=== PATIENT | male | born 1990 | race Hispanic/Latino ===

== ENCOUNTER 2017-06-20 20:36 | Emergency (ER) | payer SELFPAY ==
--- NOTE | 2017-06-20 23:02 | CT ---
CT HEAD WITHOUT CONTRAST: Technique: Multiple axial tomograms were obtained through the head without IV enhancement. History: Fall with head injury. FINDINGS: Ventricular size is within normal range. Slight asymmetry of the left frontal horn can be anatomic. There is no evidence of intracranial hemorrhage or contusion. Sinuses and mastoids are well aerated. IMPRESSION: No acute abnormality identified. POS: [facility]
== END 2017-06-20 23:07 | disposition home or self-care (01) ==
LOC: ERS 20:36
DX: S00.83XA Contusion of other part of head, initial encounter (principal); F17.200 Nicotine dependence, unspecified, uncomplicated; V00.131A Fall from skateboard, initial encounter; Y93.51 Activity, roller skating (inline) and skateboarding
CPT/HCPCS: 70450

== ENCOUNTER 2017-07-06 18:38 | Observation (INO) | payer SELFPAY ==
[~2017-07-06 18:38] MED LIST: ISOVUE-370 76%-LOCM 1 ML ONE
[2017-07-06] MEDS ORDERED: Ondansetron HCl/PF 4 MG/2 ML Vial ONE (18:56)
[2017-07-06] MEDS ORDERED: Lorazepam 2 MG/ML VIAL ONE (18:56)
[2017-07-06 19:12] LABS: #Basophils 0.1 thou/uL (0.0-0.2); #Eosinphils 0.1 thou/uL (0.0-0.7); #Lymphocytes 1.5 thou/uL (1.20-3.40); #Monocytes 1.1 thou/uL (0.11-0.59); #Neutrophils 13.1 thou/uL (1.40-6.50); %Basophils 0.8 % (0.0-1.0); %Eosinophils 0.3 % (0.0-10.0); %Lymphocytes 9.5 % (21.0-51.0); %Monocytes 6.7 % (0.0-10.0); %Neutrophils 82.7 % (42.0-75.0); Hemoglobin 15.3 g/dL (14.0-18.0); Mean Corpuscular HGB CONC 34.8 g/dL (32.0-36.0); Mean Platelet Volume 6.2 fL (7.4-10.4); Platelet Count 333 thou/uL (130-400); RBC Distribution Width 12.3 % (11.5-14.5); Red Blood Cell (RBC) Count 4.78 mill/uL (4.70-6.10); White Blood Cell (WBC) Count 15.8 thou/uL (4.8-10.8)
[2017-07-06] MEDS ORDERED: Thiamine HCl 200 MG/2 ML VIAL SLOW IVP SCH (19:15)
[2017-07-06 19:34] LABS: ALT (SGPT) 40 U/L (8-55); AST (SGOT) 45 U/L (5-34); Alkaline Phosphatase 83 U/L (40-150); Anion Gap 21 mmol/L (10-20); BUN (Urea Nitrogen) 9 mg/dL (8.9-20.6); Bilirubin, Total 1.5 mg/dL (0.2-1.2); Calc. Creatinine Clearance 0 mL/min (70-130); Calcium 9.2 mg/dL (7.8-10.44); Carbon Dioxide 20 mmol/L (22-29); Chloride 96 mmol/L (98-107); Estimated GFR-MDRD Greater than 90; Globulin 3.3 g/dL (2.4-3.5); Glucose 95 mg/dL (70-105); Potassium 4.1 mmol/L (3.5-5.1); Protein, Total 8.3 g/dL (6.0-8.3)
[2017-07-06 19:46] LABS: Sodium 133 mmol/L (136-145)
--- NOTE | 2017-07-06 20:41 | CT ---
CT OF THE ABDOMEN AND PELVIS WITH CONTRAST: 07/06/17 COMPARISON: None. HISTORY: Lower abdominal pain with nausea and vomiting that may be secondary to alcohol withdrawal. The abdomi nal pain is worse. The patient has been drinking since age of 18. TECHNIQUE: Multiple contiguous axial images were obtained in a CT of the abdomen and pelvis with contrast. Coron al reformats were performed. FINDINGS: The liver, gallbladder, kidneys, adrenal glands, spleen, and pancreas are unremarkable. No free air, free fluid or stranding changes are seen in the abdomen or pelvis. The large and small bowel are unremarkable. The appendix is not definitely seen. No abdominal or pelvic lymphadenopathy are seen. The osseous structures, visualized inferior thorax a nd abdominal wall soft tissues are unremarkable. IMPRESSION: No evidence of acute intra-abdominal/pelvic abnormality. POS: [facility]
[2017-07-06] MEDS ORDERED: Famotidine/PF 20 mg/2ml Vial ONE (22:37)
[2017-07-06] MEDS ORDERED: Diazepam 5 MG TAB PO PRN (23:29)
[2017-07-06] MEDS ORDERED: Thiamine HCl 200 MG/2 ML VIAL IM SCH (23:30)
[2017-07-06] MEDS ORDERED: Diazepam 5 MG TAB PO SCH (23:30)
--- NOTE | 2017-07-06 23:35 | PDOC.FPRHP ---
- History of Present Illness Chief Complaint: alcohol withdrawal History of Present Illness: Keyon Kwon is a 26 year old M with no significant PMH of presents today for alcohol withdrawal like symptoms. Patient has had two and a half days of nausea, vomiting, sweats, anxiety, and tremors. States that he has been drinking heavily since about the age of [age] years old. In a normal day he will have about 8-10 24 oz beers. He states that the last time he drank anything was three days ago. He has decided that he needs to quit drinking so much because he is worried about the short and nursing home effects on his body. He states that he has not been able to hold down water for the last 2 days because he vomits every time he tries to drink anything. The vomitus was clear yellow most of the time but this morning he had one episode of coffee ground like emesis. No henrik hematemesis. No abdominal pain. ED Course: In the ED, he received ativan and IVFs. Ativan improved the tremors. - Allergies/Adverse Reactions Allergies Allergy/AdvReac Type Severity Reaction Status Date / Time No Known Allergies Allergy Unverified 07/06/17 19:03 - Home Medications Comments: No home medications. - History PMHx: None PSHx: None FHx: Noncontributory Social: Patient was living in apartment but will be moving in with his brother after this admission. His brother has told him that he will not be allowed to live with him if he drinks any alcohol. Endorses occasional cigarette when he is drinking, denies any current drug or recent drug use. - Review of Systems General: reports: night sweats. denies: fever/chills, weight/appetite/sleep changes Eyes: denies: eye pain, vision changes ENT: denies: nasal congestion, rhinorrhea Respiratory: denies: cough, congestion, shortness of breath Cardiovascular: denies: chest pain, palpitation, edema, paroxysmal nocturnal dyspnea, orthopnea Gastrointestinal: reports: nausea, vomiting. denies: diarrhea, constipation, abdominal pain, GI bleeding Genitourinary: denies: dysuria, polyuria, discharge Skin: denies: rashes, lesions Musculoskeletal: denies: pain, tenderness, stiffness Neurological: reports: other (tremors/shakes). denies: numbness, syncope, seizure, weakness Psychological: reports: anxiety. denies: depression - Vital signs BP: 146/81 HR: 114 RR: 18 Tmax: 99.4 Pox: 100% on RA Wt: 58 kg - Physical Exam Constitutional: NAD, awake, alert and oriented, well developed HEENT: normocephalic and atraumatic, PERRLA, EOMI, conjunctiva clear, grossly normal vision, TM's clear and intact, grossly normal hearing, normal nasal mucosa, oropharynx clear -HEENT: dry mucous membranes Neck: supple, FROM, trachea midline, no JVD Chest: no-tender to palpation, no lesions Heart: RRR, normal S1/S2, no murmurs/rubs/gallops, pulses present Lungs: CTAB, no respiratory distress, good air movement, no rales/rhonchi, no wheezing, no retractions Abdomen: soft, non-tender, bowel sounds present, no masses/distention Musculoskeletal: normal structure, normal tone, ROM grossly normal Neurological: no focal deficit, CN II-XII intact, normal sensation -Neurological: fine tremor, sweaty palms Skin: no rash/lesions, capillary refill <2 seconds Heme/Lymphatic: no unusual bruising or bleeding Psychiatric: normal mood and affect, good judgment and insight, intact recent and remote memory FMR H&P: Results - Labs Result Diagrams: 07/06/17 19:01 07/06/17 19:01 Lab results: WBC 15.8 thou/uL (4.8-10.8) H 07/06/17 19:01 Hgb 15.3 g/dL (14.0-18.0) 07/06/17 19:01 Hct 44.0 % (42.0-52.0) 07/06/17 19:01 MCV 92.0 fl (80.0-94.0) 07/06/17 19:01 Plt Count 333 thou/uL (130-400) 07/06/17 19:01 Neutrophils % 82.7 % (42.0-75.0) H 07/06/17 19:01 Sodium 133 mmol/L (136-145) L 07/06/17 19:01 Potassium 4.1 mmol/L (3.5-5.1) 07/06/17 19:01 Chloride 96 mmol/L (98-107) L 07/06/17 19:01 Carbon Dioxide 20 mmol/L (22-29) L 07/06/17 19:01 BUN 9 mg/dL (8.9-20.6) 07/06/17 19:01 Creatinine 0.80 mg/dL (0.6-1.3) 07/06/17 19:01 Glucose 95 mg/dL (70-105) 07/06/17 19:01 Calcium 9.2 mg/dL (7.8-10.44) 07/06/17 19:01 Total Bilirubin 1.5 mg/dL (0.2-1.2) H 07/06/17 19:01 AST 45 U/L (5-34) H 07/06/17 19:01 ALT 40 U/L (8-55) 07/06/17 19:01 Alkaline Phosphatase 83 U/L (40-150) 07/06/17 19:01 Serum Total Protein 8.3 g/dL (6.0-8.3) 07/06/17 19: Albumin 5.0 g/dL (3.5-5.0) 07/06/17 19:01 - EKG Interpretation EKG: Sinus Tachycardia FMR H&P: A/P - Problem List (1) Increased anion gap metabolic acidosis Current Visit: Yes Status: Acute Code(s): E87.2 - ACIDOSIS (2) Moderate dehydration Current Visit: Yes Status: Acute Code(s): E86.0 - DEHYDRATION (3) Alcohol withdrawal Current Visit: Yes Status: Acute Code(s): F10.239 - ALCOHOL DEPENDENCE WITH WITHDRAWAL, UNSPECIFIED (4) Hyponatremia Current Visit: Yes Status: Acute Code(s): E87.1 - HYPO-OSMOLALITY AND HYPONATREMIA - Plan (1) Anion gap metabolic acidosis: has not been eating or drinking any significant amount for three days with long history of alcohol abuse. Place on Tele. ASE protocol. Supplement folate, thiamine, multivitamin. IVFs, Banana bag initially. NS @ 150 ml/hr. Will monitor labs closely. (2) Moderate dehydration: Banana bag initially followed by NS @ 150 ml/hr (3) Alcohol withdrawal: ASE protocol. Three days since last beverage. Continuous cardiac monitoring on Tele. Consult case management for discharge planning and follow up. Consider acamprosate upon discharge. (4) Hyponatremia: Likely 2/2 dehydration. IVFs and monitor. (5) Code Status: FULL CODE (6) Diet: Reg once he can tolerate PO (7) Activity: ad lyle FMR H&P: Upper Level - Pertinent history 26yo HM with no sig pmhx who presents with tremors, anxiety, sweats, and racing heart arppox 2.5 days after his last drink. He states he typically drinks 8-10 beers per day that are 24oz each. States he has been drinking this heavily for hte last 3-4 years but started drinking at age 18. Also states he began vomiting 2 days ago and has not been able to take much water PO without vomiting. Emesis is yellow & bilious in color, but has also had 1 episode of coffee-ground emesis. No henrik hematemesis. No diarrhea, melena or hematochezia. Family members have expressed concern for the amount of alcohol he drinks. He no longer has an apartment and he is planning to move in with his brother in [facility], who is requesting the patient abstain from alcohol. This is some of his motivation to quit in addition to not wanting to cause permanent damage to his body. Denies any drug use. Endorses 1 cigarette per day when he is drunk. FHx sig for alcoholism but no cirrhosis. - Pertinent findings Laboratory Tests 07/06/17 07/06/17 19:01 19:01 WBC 15.8 H Hgb 15.3 Hct 44.0 Plt Count 333 Sodium 133 L Potassium 4.1 Chloride 96 L Carbon Dioxide 20 L Anion Gap 21 H BUN 9 Creatinine 0.80 Estimated GFR (MDRD) Greater than 90 Glucose 95 Calcium 9.2 Total Bilirubin 1.5 H AST 45 H ALT 40 Alkaline Phosphatase [address] A/P- negative Pertinent physical exam findings- Gen- NAD, mildly tremulous, palmar diaphoresis and anxious appearing. CV- mildly tachycardic lungs- CTAB abd- non-tender to palpation neuro- no focal deficits. no asterixis. derm- no stigmata of cirrhosis. psyc- affect appropriate, mildly anxious appearing. CIWa- 12 by my exam - Plan Date/Time: 07/06/17 2783 26yo HM with no sig pmhx presents with- 1) Moderate dehydration- IVF until UOP > 100cc/hr and VS normal. Repeat BMP & CBC in am. zofran, GI cocktail prn to help tolerate po fluid intake. 2) Acute alcohol withdrawal- ASE protocol and start valium taper now. give thiamine, folate, MV daily. highly motivated to quit drinking. consider acamprosate upon discharge to aid with abstinence. consult case mgmt for resources in [facility]. 3) Alcohol abuse- counseling, bzd and vitamins as above 4) Anion gap metabolic acidosis- likely alcoholic ketoacidosis. continue IVF and replete electrolytes. I, [Lyubov Bailey DO ([email or web address]) ], have evaluated this patient and agree with findings/plan as outlined by digital intern resident. Pertinent changes/additions are listed here.
[2017-07-06] MEDS ORDERED: Multivitamins, Adult 10 ML, Folic Acid 1 MG, Thiamine HCl 100 MG in Dextrose 5 %-0.45 %... IV SCH ×4 (23:45)
[2017-07-07] MEDS ORDERED: Lidocaine 2% Viscous Solution 20 ML, Aluminum & Magnesium Hydroxide 30 ML, Donnatal Eli... SSW SCH ×3 (00:15)
[2017-07-07 00:24] VITALS: BMI 18.5
[2017-07-07] MEDS ORDERED: Diazepam 5 MG TAB PO PRN (04:00)
[2017-07-07 05:13] LABS: Amphetamine Not Detected (NotDetected); Barbiturates Screen Not Detected (NotDetected); Benzodiazepine Screen Detected (NotDetected); Cocaine Metabolite Screen Not Detected (NotDetected); Medtox Reader # READER 1; Methadone Not Detected (NotDetected); Methamphetamine Not Detected (NotDetected); Opiate Screen Not Detected (NotDetected); Oxycodone Screen Not Detected (NotDetected); Phencyclidine (PCP) Not Detected (NotDetected); THC/Cannabinoid Screen Not Detected (NotDetected); Tricyclic Screen Not Detected (NotDetected)
[2017-07-07 05:14] LABS: Medtox Control Line Valid? VALID (VALID)
[2017-07-07 06:27] LABS: #Basophils 0.1 thou/uL (0.0-0.2); #Eosinphils 0.1 thou/uL (0.0-0.7); #Lymphocytes 1.5 thou/uL (1.20-3.40); #Monocytes 0.6 thou/uL (0.11-0.59); #Neutrophils 3.7 thou/uL (1.40-6.50); %Basophils 1.3 % (0.0-1.0); %Eosinophils 1.7 % (0.0-10.0); %Lymphocytes 25.6 % (21.0-51.0); %Monocytes 10.1 % (0.0-10.0); %Neutrophils 61.3 % (42.0-75.0); Hemoglobin 13.9 g/dL (14.0-18.0); Mean Corpuscular HGB CONC 34.5 g/dL (32.0-36.0); Mean Corpuscular Hemoglobin 31.8 pg (27.0-31.0); Mean Corpuscular Volume 92.2 fl (80.0-94.0); Mean Platelet Volume 6.2 fL (7.4-10.4); Platelet Count 249 thou/uL (130-400); RBC Distribution Width 12.4 % (11.5-14.5); Red Blood Cell (RBC) Count 4.36 mill/uL (4.70-6.10)
[2017-07-07] MEDS: Sodium Chloride 0.9% 1,000 ML IV SCH ×4 (06:56→20:59)
[2017-07-07 07:02] LABS: ALT (SGPT) 28 U/L (8-55); AST (SGOT) 30 U/L (5-34); Albumin 3.7 g/dL (3.5-5.0); Alkaline Phosphatase 69 U/L (40-150); Anion Gap 11 mmol/L (10-20); BUN (Urea Nitrogen) 5 mg/dL (8.9-20.6); Bilirubin, Total 1.4 mg/dL (0.2-1.2); Calc. Creatinine Clearance 122 mL/min (70-130); Calcium 7.8 mg/dL (7.8-10.44); Carbon Dioxide 22 mmol/L (22-29); Chloride 106 mmol/L (98-107); Estimated GFR-MDRD Greater than 90; Globulin 2.2 g/dL (2.4-3.5); Glucose 111 mg/dL (70-105); Potassium 3.2 mmol/L (3.5-5.1); Protein, Total 5.9 g/dL (6.0-8.3); Sodium 136 mmol/L (136-145)
--- NOTE | 2017-07-07 08:43 | PDOC.FM ---
- Subjective Subjective: 26 yo M with no significant medical history admitted for acute etoh withdrawal. Pt feels better today than at admission. He has experienced 3 days of n/v, however he states that this has improved somewhat. He denies hallucination. It has been 3 days since his last drink. He has never seized when stopping drinking in the past. Most recent ASE was 12 down trending from 14. Pt states that he is ready to quit drinking because of concerns for shelter problems. He is interested in what help is available. He is also concerned about a feeling of twitching or worm like sensation in his left let that progresses into his abd and chest. He states that this precedes panic attacks and is the reason that he started drinking. He has no psych hx, however has no consistent primary care. - Objective MAR Reviewed: Yes Vital Signs & Weight: Vital Signs (12 hours) Temp Pulse Resp BP BP Pulse Ox 07/07/17 07:45 98.7 F 79 18 132/85 98 07/07/17 04:20 98.6 F 83 18 128/84 128/84 100 07/07/17 00:24 134/84 07/06/17 23:57 98.8 F 83 20 134/84 134/84 100 Weight Weight 56.926 kg I&O: 07/06/17 07/07/17 07/08/17 06:59 06:59 06:59 Intake Total 1308 Output Total 650 Balance 658 Result Diagrams: 07/07/17 05:58 07/07/17 05:58 <Shady Branham - Last Filed: 07/07/17 08:39> - Objective Vital Signs & Weight: Vital Signs (12 hours) Temp Pulse Resp BP BP Pulse Ox 07/08/17 07:44 98.4 F 75 16 127/80 100 07/08/17 04:00 129/80 07/08/17 03:45 97.6 F 59 L 16 129/80 99 07/08/17 00:15 126/76 07/07/17 23:16 98.6 F 62 18 126/76 100 Weight Admit Weight 56.926 kg Weight 56.926 kg I&O: 07/07/17 07/08/17 07/09/17 06:59 06:59 06:59 Intake Total 1308 240 Output Total 650 1800 Balance 658 -1560 Result Diagrams: 07/07/17 05:58 07/08/17 04:37 <Ginna Newsome - Last Filed: 07/08/17 08:47> Phys Exam - Physical Examination Constitutional: NAD HEENT: PERRLA, moist MMs, sclera anicteric Neck: no nodes, no JVD, supple Respiratory: clear to auscultation bilateral Cardiovascular: RRR, no significant murmur Gastrointestinal: soft, non-tender, no distention, positive bowel sounds Musculoskeletal: no edema, pulses present Normal strength, ROM, and DTR in LE and UE Neurological: non-focal, normal sensation, moves all 4 limbs Psychiatric: normal affect, A&O x 3 Skin: no rash <Shady Branham - Last Filed: 07/07/17 08:39> Dx/Plan (1) Alcohol withdrawal Code(s): F10.239 - ALCOHOL DEPENDENCE WITH WITHDRAWAL, UNSPECIFIED Status: Acute QualifierTitle: Complication of substance-induced condition: uncomplicated Qualified Code(s): F10.230 - Alcohol dependence with withdrawal, uncomplicated (2) Hematemesis Code(s): K92.0 - HEMATEMESIS Status: Acute QualifierTitle: Nausea presence: with nausea Qualified Code(s): K92.0 - Hematemesis (3) Hyponatremia Code(s): E87.1 - HYPO-OSMOLALITY AND HYPONATREMIA Status: Resolved (4) Increased anion gap metabolic acidosis Code(s): E87.2 - ACIDOSIS Status: Resolved (5) Moderate dehydration Code(s): E86.0 - DEHYDRATION Status: Resolved (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 Three days since last beverage. - Continue ASE protocol and continuous cardiac monitoring on Tele. - Consult case management for discharge planning and follow up. - Consider acamprosate upon discharge. Hematemesis - 2/2 to n/. Pt has had no episodes since admission - zofran to control n/v - monitor h&h Nausea/vomiting - 2/2 withdrawal. Continue IVF. Zofran as needed Anion gap metabolic acidosis - Resolved. Moderate dehydration - Resolved, normal vitals and skin turgor - continue IVF until pt can tolerate PO Hyponatremia - resolved Formication - Pt appears to have underlying anxiety and possible other psych diagnosis. Recommend [facility] or PCP follow up as outpatient. PE is inconsistent with organic source of symptoms Dispo: Pt stable. Likely ready for DC in 24 hours. Consult CM for placement into etoh rehab <Shady Branham - Last Filed: 07/07/17 08:39> Attending Addendum - Attending Addendum Date/Time: 07/08/1744 I personally evaluated the patient and discussed the management with Dr. Branham and Dr. Pina I agree with the History, Examination, Assessment and Plan documented above with any addition or exceptions noted below. 26 yo alcoholic male presents with alcohol withdrawal. HD#1 Withdrawal x 3days. Symptoms improved since admission. No N/V. Tolerating PO. No tremors or shakes. No hallucinations. Ketones, Mg, Phos not monitored last night. Will check mg and phos to replace then likely d/c to home. CM consulted to help with rehab and treatment programs. Patient interested in stopping. Re-evaluate this afternoon. Likely d/c. ABrayMD <Ginna Newsome - Last Filed: 07/08/17 08:47>
[2017-07-07] MEDS: Acetaminophen 325 MG TAB PO PRN ×2 (08:59→22:45)
[2017-07-07] MEDS: Multivit, Therapeutic 1 TAB PO SCH (08:59)
[2017-07-07] MEDS ORDERED: Multivitamin W/ Minerals 1 TAB PO SCH (09:00)
[2017-07-07] MEDS ORDERED: Folic Acid 1 MG TAB PO SCH (09:00)
[2017-07-07] MEDS: Folic Acid 1 MG TAB PO SCH (09:00)
[2017-07-07] MEDS ORDERED: Magnesium Oxide 400 MG TAB PO SCH (09:00)
[2017-07-07] MEDS ORDERED: FLU VACC QS2017-18 36 mo. & older 0.5 ML SYRINGE IM ONE (09:00)
[2017-07-07] MEDS ORDERED: Potassium Chloride 40 MEQ in Sodium Chloride 0.9% 250 ML 250 ML IVPB SCH (12:45)
[2017-07-07 17:53] LABS: Anion Gap 10 mmol/L (10-20); BUN (Urea Nitrogen) Less than 4 mg/dL (8.9-20.6); Calc. Creatinine Clearance 113 mL/min (70-130); Calcium 8.8 mg/dL (7.8-10.44); Carbon Dioxide 26 mmol/L (22-29); Chloride 106 mmol/L (98-107); Estimated GFR-MDRD Greater than 90; Glucose 86 mg/dL (70-105); Magnesium 2.2 mg/dL (1.6-2.6); Potassium 4.4 mmol/L (3.5-5.1); Sodium 138 mmol/L (136-145)
[2017-07-07 17:56] LABS: Phosphorus 1.8 mg/dL (2.3-4.7)
[2017-07-08] MEDS: Sodium Chloride 0.9% 1,000 ML IV SCH ×2 (03:35→10:19)
[2017-07-08 05:35] LABS: Anion Gap 10 mmol/L (10-20); BUN (Urea Nitrogen) 4 mg/dL (8.9-20.6); Calc. Creatinine Clearance 127 mL/min (70-130); Calcium 8.3 mg/dL (7.8-10.44); Carbon Dioxide 25 mmol/L (22-29); Chloride 106 mmol/L (98-107); Estimated GFR-MDRD Greater than 90; Glucose 89 mg/dL (70-105); Magnesium 2.1 mg/dL (1.6-2.6); Phosphorus 2.6 mg/dL (2.3-4.7); Potassium 3.5 mmol/L (3.5-5.1); Sodium 137 mmol/L (136-145)
[2017-07-08] MEDS: Folic Acid 1 MG TAB PO SCH (08:03)
[2017-07-08] MEDS: Multivit, Therapeutic 1 TAB PO SCH (08:03)
--- NOTE | 2017-07-08 09:03 | PDOC.FM ---
- Subjective Subjective: 26 yo M here for etoh withdrawal. Today pt feels well and has no specific complaints. He is tolerating PO intake and no longer has n/v. There were no acute events over night. - Objective MAR Reviewed: Yes Vital Signs & Weight: Vital Signs (12 hours) Temp Pulse Resp BP BP Pulse Ox 07/08/17 07:44 98.4 F 75 16 127/80 100 07/08/17 04:00 129/80 07/08/17 03:45 97.6 F 59 L 16 129/80 99 07/08/17 00:15 126/76 07/07/17 23:16 98.6 F 62 18 126/76 100 Weight Admit Weight 56.926 kg Weight 56.926 kg I&O: 07/07/17 07/08/17 07/09/17 06:59 06:59 06:59 Intake Total 1308 240 Output Total 650 1800 Balance 658 -7450 Result Diagrams: 07/07/17 05:58 07/08/17 04:37 <Shady Branham - Last Filed: 07/08/17 09:01> - Objective Vital Signs & Weight: Vital Signs (12 hours) Temp Pulse Resp BP BP Pulse Ox 07/08/17 11:40 98.6 F 75 16 133/84 99 07/08/17 08:06 98.6 F 75 16 133/84 07/08/17 07:44 98.4 F 75 16 127/80 100 Weight Admit Weight 56.926 kg Weight 56.926 kg I&O: 07/07/17 07/08/17 07/09/17 06:59 06:59 06:59 Intake Total 0063 349 9288 Output Total 650 1800 2500 Balance 658 0 -580 Result Diagrams: 07/07/17 05:58 07/08/17 04:37 <Ginna Newsome - Last Filed: 07/08/17 16:17> Phys Exam - Physical Examination Constitutional: NAD HEENT: moist MMs, sclera anicteric Neck: supple, full ROM Respiratory: clear to auscultation bilateral Cardiovascular: RRR, no significant murmur Gastrointestinal: soft, non-tender, no distention, positive bowel sounds Musculoskeletal: no edema, pulses present Neurological: non-focal, moves all 4 limbs Psychiatric: normal affect, A&O x 3 Skin: no rash, normal turgor <Sahdy Branham - Last Filed: 07/08/17 09:01> Dx/Plan (1) Alcohol withdrawal Code(s): F10.239 - ALCOHOL DEPENDENCE WITH WITHDRAWAL, UNSPECIFIED Status: Acute QualifierTitle: Complication of substance-induced condition: uncomplicated Qualified Code(s): F10.230 - Alcohol dependence with withdrawal, uncomplicated (2) Hematemesis Code(s): K92.0 - HEMATEMESIS Status: Acute QualifierTitle: Nausea presence: with nausea Qualified Code(s): K92.0 - Hematemesis (3) Hyponatremia Code(s): E87.1 - HYPO-OSMOLALITY AND HYPONATREMIA Status: Resolved (4) Increased anion gap metabolic acidosis Code(s): E87.2 - ACIDOSIS Status: Resolved (5) Moderate dehydration Code(s): E86.0 - DEHYDRATION Status: Resolved (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 - Stop ASE - Consult case management for discharge planning and follow up. - Consider acamprosate as outpt Hematemesis - 2/2 to n/. Pt has had no episodes since admission - zofran to control n/v - monitor h&h Nausea/vomiting - 2/2 withdrawal. Continue IVF. Zofran as needed Anion gap metabolic acidosis - Resolved. Moderate dehydration - Resolved, normal vitals and skin turgor - continue IVF until pt can tolerate PO Hyponatremia - resolved Formication - Pt appears to have underlying anxiety and possible other psych diagnosis. Recommend [facility] or PCP follow up as outpatient. PE is inconsistent with organic source of symptoms Dispo: dc was held yesterday dt phos abnormalities and lack of transportation. Pt will dc today <Shady Branham - Last Filed: 07/08/17 09:01> Attending Addendum - Attending Addendum Date/Time: 07/08/17 3608 I personally evaluated the patient and discussed the management with Dr. Branham and Dr. Pina I agree with the History, Examination, Assessment and Plan documented above with any addition or exceptions noted below. 26 yo alcoholic male presents with alcohol withdrawal. HD#2 Patient without complaints this morning. Doing well. No s/sx of withdrawal. Electrolytes replaced. [facility] Will need follow up with [facility] Will need to establish with local AA chapter [place] <Ginna Newsome - Last Filed: 07/08/17 16:17>
[2017-07-08 12:21] VITALS: BP 133/84; TEMP 98.6
--- NOTE | 2017-07-09 07:29 | DIS-2 ---
DATE OF ADMISSION: 07/06/2017 DATE OF DISCHARGE: 07/08/2017 RESIDENT: Shady Branham D.O. ADMITTING ATTENDING: Ginna Newsome M.D. DISCHARGE ATTENDING: Ginna Newsome M.D. CONSULTS: None. PROCEDURES: None. PRIMARY DIAGNOSIS: Acute alcohol withdrawal. SECONDARY DIAGNOSES: Alcoholic ketoacidosis, mild dehydration, hyponatremia. DISCHARGE MEDICATIONS: None. DISCONTINUED MEDICATIONS: None. BRIEF HOSPITAL COURSE: This is a 26-year-old male who was admitted from the emergency room with two and half days of nausea, vomiting, sweats, anxiety and tremors. He had a history of drinking eight to ten 24-ounce beers per day prior to abruptly quitting drinking. He had stopped drinking approximately two and half days before presentation to the emergency room. Upon admission, he was found to have a white count of 15.8. He was also hyponatremic at 133 and acidotic. He had bicarbonate of 20. Upon admission, he was monitored on telemetry/observation. He was put on ASE protocol, was given a banana bag in the emergency room and then given supplement of folate, thiamine and multivitamin afterwards and volume resuscitated with normal saline. By the second day of admission, the acid base disturbance had resolved; however, the patient was found to be hypomagnesemic, hypophosphatemic and hypokalemic. These values were potassium of 3.2, mag of 2.0 and phos of 1.9. Electrolyte abnormalities were corrected over the next 24 hours. On the day of discharge, the patient had no more nausea and vomiting, had normal vital signs, ASE scores were consistently below 5. We extensively discussed on the dangers of continuing to drink as he currently is. The patient committed to quit drinking altogether and was moving in with his brother who would not allow him to drink while there. We discussed going to rehab; however, the patient declined stating that he would live with his brother who would not let him drink. While admitted, the patient was complaining of feeling of worms under his skin in his left leg and into his chest that came on as he became more anxious. He says it is the reason for his drinking altogether and that he was hoping to find out what these worms were. Physical exam was completely normal. He had good strength,range of motion, and a normal neurological exam. This is most likely psychogenic in nature. This was explained extensively to the patient. It is recommended that in addition to establishing with a primary care provider that he established with [facility] [place] as well. The patient agreed and understood where he should follow up in outpatient setting. DISPOSITION: Stable. DISCHARGE INSTRUCTIONS: 1. Location: Home. 2. Diet: Regular. 3. Activity: Ad-lyle. 4. [facility]up: [facility] WARREN
--- NOTE | 2017-07-17 00:25 | EKG ---
Test Reason : WITHDRAWLS Blood Pressure : / mmHG Vent. Rate : 110 BPM Atrial Rate : 110 BPM P-R Int : 116 ms QRS Dur : 086 ms QT Int : 336 ms P-R-T Axes : 025 072 050 degrees QTc Int : 454 ms Sinus tachycardia Possible Left atrial enlargement Borderline ECG Confirmed by YIMI CÁRDENAS ([id number]), editorial specialist LUX COLE ([id number]) on 07/17/2017 12:25:02 AM Referred By: Confirmed By:YIMI CÁRDENAS
== END 2017-07-08 14:23 | disposition home or self-care (01) ==
LOC: ERS 18:38 → 2SW 22:02
PROVIDERS: ADMIT Family Medicine; ATTEND Family Medicine
DX: F10.239 Alcohol dependence with withdrawal, unspecified (principal); E87.2 Acidosis; E87.1 Hypo-osmolality and hyponatremia; E86.0 Dehydration; K92.0 Hematemesis; F44.6 Conversion disorder with sensory symptom or deficit
CPT/HCPCS: 36415; 74177; 80048; 80053; 80306; 83735; 84100; 85025; 90471; 90682; 90732; 93005; 96361; 96372; 96374; 96375; G0008; G0009; G0378; J2060; J2405; J3411; J3475; J3480; J7042; J7050; Q2036; S0028

== ENCOUNTER 2017-08-04 16:00 | Emergency (ER) | payer SELFPAY ==
[2017-08-04 17:10] LABS: #Lymphocytes 0.9 thou/uL (1.20-3.40); #Monocytes 0.4 thou/uL (0.11-0.59); #Neutrophils 7.5 thou/uL (1.40-6.50); %Basophils 0.3 % (0.0-1.0); %Eosinophils 0.1 % (0.0-10.0); %Lymphocytes 10.5 % (21.0-51.0); %Monocytes 4.4 % (0.0-10.0); %Neutrophils 84.7 % (42.0-75.0); Hemoglobin 15.2 g/dL (14.0-18.0); Mean Corpuscular HGB CONC 35.7 g/dL (32.0-36.0); Mean Corpuscular Hemoglobin 32.5 pg (27.0-31.0); Mean Platelet Volume 5.7 fL (7.4-10.4); Platelet Count 245 thou/uL (130-400); RBC Distribution Width 12.2 % (11.5-14.5); Red Blood Cell (RBC) Count 4.69 mill/uL (4.70-6.10); White Blood Cell (WBC) Count 8.8 thou/uL (4.8-10.8)
[2017-08-04 17:36] LABS: Acetaminophen Less than 6.0 mcg/mL (10.0-30.0); Alcohol 39 mg/dL (Less than 10); Salicylate Less than 8.0 mg/dL (15.0-30.0)
[2017-08-04 17:41] LABS: ALT (SGPT) 47 U/L (8-55); AST (SGOT) 48 U/L (5-34); Albumin 4.5 g/dL (3.5-5.0); Alkaline Phosphatase 94 U/L (40-150); Anion Gap 16 mmol/L (10-20); BUN (Urea Nitrogen) 6 mg/dL (8.9-20.6); Calc. Creatinine Clearance 0 mL/min (70-130); Calcium 9.4 mg/dL (7.8-10.44); Carbon Dioxide 24 mmol/L (22-29); Chloride 96 mmol/L (98-107); Estimated GFR-MDRD Greater than 90; Globulin 3.1 g/dL (2.4-3.5); Glucose 163 mg/dL (70-105); Lipase 24 U/L (8-78); Potassium 4.1 mmol/L (3.5-5.1); Protein, Total 7.6 g/dL (6.0-8.3); Sodium 132 mmol/L (136-145)
[2017-08-04 19:25] LABS: Bilirubin Negative (Negative); Blood, Urine Negative (Negative); Clarity CLEAR (Clear); Glucose, Urine (Dipstick) Negative (Negative); Leukocyte Negative (Negative); Nitrite Negative (Negative); Protein, Urine (Dipstick) Negative (Neg-Trace); Specific Gravity, Urine 1.007 (1.002-1.036); Urobilinogen 0.2 mg/dL (0.2-1.0); pH, Urine 6.5 (5.0-9.0)
[2017-08-04 19:35] LABS: Amphetamine Not Detected (NotDetected); Barbiturates Screen Not Detected (NotDetected); Benzodiazepine Screen Not Detected (NotDetected); Cocaine Metabolite Screen Not Detected (NotDetected); Medtox Control Line Valid? VALID (VALID); Medtox Reader # READER 4; Methadone Not Detected (NotDetected); Methamphetamine Not Detected (NotDetected); Opiate Screen Not Detected (NotDetected); Oxycodone Screen Not Detected (NotDetected); Phencyclidine (PCP) Not Detected (NotDetected); THC/Cannabinoid Screen Not Detected (NotDetected); Tricyclic Screen Not Detected (NotDetected)
== END 2017-08-04 18:40 | disposition home or self-care (01) ==
LOC: ERS 16:00
DX: K29.00 Acute gastritis without bleeding (principal); F10.129 Alcohol abuse with intoxication, unspecified; F17.210 Nicotine dependence, cigarettes, uncomplicated; Z71.6 Tobacco abuse counseling; Y90.1 Blood alcohol level of 20-39 mg/100 ml
CPT/HCPCS: 36415; 80053; 80306; 80307; 81003; 83690; 85025; 96360; 99406

== ENCOUNTER 2017-08-16 05:02 | Emergency (ER) | payer SELFPAY ==
[2017-08-16] MEDS ORDERED: Lorazepam 2 MG/ML VIAL ONE (05:17)
[2017-08-16 05:29] LABS: #Eosinphils 0.1 thou/uL (0.0-0.7); #Lymphocytes 1.2 thou/uL (1.20-3.40); #Monocytes 0.9 thou/uL (0.11-0.59); #Neutrophils 5.5 thou/uL (1.40-6.50); %Basophils 0.6 % (0.0-1.0); %Eosinophils 1.4 % (0.0-10.0); %Lymphocytes 15.8 % (21.0-51.0); %Monocytes 11.1 % (0.0-10.0); %Neutrophils 71.1 % (42.0-75.0); Hemoglobin 15.6 g/dL (14.0-18.0); Mean Corpuscular HGB CONC 34.9 g/dL (32.0-36.0); Mean Corpuscular Hemoglobin 31.9 pg (27.0-31.0); Mean Corpuscular Volume 91.5 fl (80.0-94.0); Platelet Count 312 thou/uL (130-400); RBC Distribution Width 12.4 % (11.5-14.5); Red Blood Cell (RBC) Count 4.89 mill/uL (4.70-6.10); White Blood Cell (WBC) Count 7.7 thou/uL (4.8-10.8)
[2017-08-16] MEDS ORDERED: Multivitamins, Adult 10 ML, Thiamine HCl 100 MG, Folic Acid 1 MG in Dextrose 5 %-0.45 %... IV SCH (05:30)
[2017-08-16 05:40] LABS: ALT (SGPT) 24 U/L (8-55); AST (SGOT) 23 U/L (5-34); Albumin 4.8 g/dL (3.5-5.0); Alcohol Less than 10 mg/dL (Less than 10); Alkaline Phosphatase 83 U/L (40-150); Anion Gap 16 mmol/L (10-20); BUN (Urea Nitrogen) Less than 4 mg/dL (8.9-20.6); Bilirubin, Total 1.4 mg/dL (0.2-1.2); Calc. Creatinine Clearance 0 mL/min (70-130); Carbon Dioxide 26 mmol/L (22-29); Chloride 100 mmol/L (98-107); Estimated GFR-MDRD Greater than 90; Globulin 3.3 g/dL (2.4-3.5); Glucose 124 mg/dL (70-105); Potassium 3.9 mmol/L (3.5-5.1); Protein, Total 8.1 g/dL (6.0-8.3); Sodium 138 mmol/L (136-145)
--- NOTE | 2017-08-16 08:29 | CT ---
PRELIMINARY REPORT/[facility]/EMERGENTY AFTER-HOURS PROCEDURE CT Head Without Intravenous Contrast EXAM DATE/TIME: Exam ordered 08/16/2017 5:38 AM CLINICAL HISTORY: 26 years old, male; Signs and symptoms; Other: Seizure; Patient HX: 26 yo m presents to ed with alcoh ol withdrawal. Pt reports he has been shaking and states "i think i had a seizure while i was sleepin g. " pt states "i felt like my system was turning off. " pt reports pain in his arms and chest. Pt reports his last alcoholic drink was 11am 08/15/17. Pt denies any other drug use. Pt reports he typical ly consumes about 6 "tallboys" every other day. Pt reports abrasion on nose occurred 1.5 months ago w hen he fell down while skateboarding, and he has been picking at it recently. TECHNIQUE: Axial computed tomography images of the head/brain without intravenous contrast. COMPARISON: No relevant prior studies available. FINDINGS: Brain: Normal. No hemorrhage. No significant white matter disease. No edema. Ventricles: Normal. No ventriculomegaly. Bones/joints: Normal. No acute fracture. Soft tissues: Normal. Sinuses: Unremarkable as visualized. No acute sinusitis. Mastoid air cells: Unremarkable as visualized. No mastoid effusion. IMPRESSION: No acute intracranial hemorrhage. Thank you for allowing us to participate in the care of your patient. Dictated and Authenticated by: Alonzo Parmar MD 08/16/2017 6:06 AM Central Time ([place] & [place]) FINAL REPORT EMERGENT AFTER HOURS CT OF THE BRAIN WITHOUT CONTRAST: FINDINGS/IMPRESSION: I agree with the findings and impression given in the preliminary report per [facility] physician. No andrzej dence of acute intracranial abnormality. POS: [facility]
== END 2017-08-16 10:24 | disposition home or self-care (01) ==
LOC: ERS 05:02
DX: F10.239 Alcohol dependence with withdrawal, unspecified (principal); Z71.6 Tobacco abuse counseling; F17.210 Nicotine dependence, cigarettes, uncomplicated; Z79.899 Other long term (current) drug therapy
CPT/HCPCS: 70450; 80053; 80307; 85025; 93005; 96365; 96366; 96375; 99406; J2060; J3411; J7042

== ENCOUNTER 2017-09-20 08:36 | Emergency (ER) | payer SELFPAY ==
[2017-09-20] MEDS ORDERED: Lidocaine 2% Viscous Solution 20 ML, Aluminum & Magnesium Hydroxide 30 ML, Donnatal Eli... SSW SCH (09:45)
== END 2017-09-20 12:58 | disposition home or self-care (01) ==
LOC: ERS 08:36
DX: K29.20 Alcoholic gastritis without bleeding (principal); F41.9 Anxiety disorder, unspecified; F32.9 Major depressive disorder, single episode, unspecified; F17.210 Nicotine dependence, cigarettes, uncomplicated
CPT/HCPCS: 99283

== ENCOUNTER 2017-10-08 07:26 | Emergency (ER) | payer SELFPAY ==
[2017-10-08] MEDS ORDERED: Ondansetron ODT 4 MG TAB ONE (08:07)
== END 2017-10-08 08:28 | disposition home or self-care (01) ==
LOC: ERS 07:26
DX: F10.10 Alcohol abuse, uncomplicated (principal); F41.9 Anxiety disorder, unspecified; F32.9 Major depressive disorder, single episode, unspecified; F17.210 Nicotine dependence, cigarettes, uncomplicated
CPT/HCPCS: 99283; Q0162

== ENCOUNTER 2018-04-15 12:38 | Emergency (ER) | payer SELFPAY ==
[2018-04-15 13:37] LABS: #Eosinphils 0.1 thou/uL (0.0-0.7); #Lymphocytes 0.7 thou/uL (1.20-3.40); #Monocytes 0.8 thou/uL (0.11-0.59); #Neutrophils 4.7 thou/uL (1.40-6.50); %Basophils 0.6 % (0.0-1.0); %Eosinophils 1.2 % (0.0-10.0); %Lymphocytes 11.2 % (21.0-51.0); Mean Corpuscular Volume 91.6 fL (78.0-98.0); Mean Platelet Volume 6.4 fL (7.4-10.4); Platelet Count 212 thou/uL (130-400); RBC Distribution Width 13.3 % (11.5-14.5); Red Blood Cell (RBC) Count 5.01 mill/uL (4.70-6.10); White Blood Cell (WBC) Count 6.3 thou/uL (4.8-10.8)
[2018-04-15 14:00] LABS: ALT (SGPT) 29 U/L (8-55); AST (SGOT) 23 U/L (5-34); Albumin 4.9 g/dL (3.5-5.0); Alkaline Phosphatase 86 U/L (40-150); Anion Gap 15 mmol/L (10-20); BUN (Urea Nitrogen) 9 mg/dL (8.9-20.6); Bilirubin, Total 0.8 mg/dL (0.2-1.2); CK (CPK) 75 U/L (30-200); Calc. Creatinine Clearance 0 mL/min (70-130); Calcium 9.5 mg/dL (7.8-10.44); Carbon Dioxide 24 mmol/L (22-29); Chloride 99 mmol/L (98-107); Estimated GFR-MDRD Greater than 90; Globulin 3.3 g/dL (2.4-3.5); Glucose 114 mg/dL (70-105); Lipase 22 U/L (8-78); Potassium 3.9 mmol/L (3.5-5.1); Protein, Total 8.2 g/dL (6.0-8.3); Sodium 134 mmol/L (136-145)
--- NOTE | 2018-04-15 15:19 | RAD ---
CHEST 1 VIEW: Date: 04/15/18 HISTORY: Chest pain. FINDINGS: No comparison. Cardiac silhouette and pulmonary vasculature are unremarkable. Mediastinum is midline. No confluent a ir space consolidation or evidence of pneumothorax. IMPRESSION: No active cardiopulmonary abnormalities are demonstrated. POS: [facility]
[2018-04-15] MEDS ORDERED: Famotidine 20 MG TAB ONE (15:32)
== END 2018-04-15 15:35 | disposition home or self-care (01) ==
LOC: ERS 12:38
DX: R07.9 Chest pain, unspecified (principal); R10.9 Unspecified abdominal pain; F10.10 Alcohol abuse, uncomplicated; F17.210 Nicotine dependence, cigarettes, uncomplicated
CPT/HCPCS: 36415; 71045; 80053; 82550; 83690; 84484; 85025; 93005

== ENCOUNTER 2019-12-31 10:22 | Inpatient (IN) | payer OTHER, SELFPAY ==
[2019-12-31] MEDS ORDERED: Mag-Al 1200 mg/1200 mg/30 ML UDCUP ONE (11:02)
[2019-12-31] MEDS ORDERED: Lidocaine Viscous Sol 2% 15 ml UD Cup ONE (11:02)
[2019-12-31] MEDS ORDERED: Pantoprazole 40 MG VIAL ONE (11:02)
[2019-12-31] MEDS ORDERED: Ondansetron PF 4 MG/2 ML Vial ONE (11:02)
--- NOTE | 2019-12-31 11:25 | RAD ---
RADIOGRAPH CHEST 1 VIEW: DATE: 12/31/2019 HISTORY: 29-year-old male with chest pain and hematemesis. FINDINGS: The visualized lung michele are clear. The cardiomediastinal silhouette and hilar shadows are normal. The lateral costophrenic angles are sharp. The osseous structures appear normal. There is no pneu mothorax. IMPRESSION: Negative. jn [] POS: [facility]
[2019-12-31 11:27] LABS: Acetaminophen Less than 6.0 mcg/mL (10.0-30.0); Alcohol 149 mg/dL (Less than 10); Salicylate Less than 8.0 mg/dL (15.0-30.0)
[2019-12-31 11:39] LABS: ALT (SGPT) 197 U/L (8-55); AST (SGOT) 357 U/L (5-34); Albumin 5.2 g/dL (3.5-5.0); Alkaline Phosphatase 121 U/L (40-110); Anion Gap 37 mmol/L (10-20); BUN (Urea Nitrogen) 9 mg/dL (8.9-20.6); Bilirubin, Total 1.5 mg/dL (0.2-1.2); CK (CPK) 115 U/L (30-200); Calc. Creatinine Clearance 0 mL/min (70-130); Calcium 9.5 mg/dL (7.8-10.44); Chloride 98 mmol/L (98-107); Estimated GFR-MDRD Greater than 90; Globulin 3.6 g/dL (2.4-3.5); Glucose 104 mg/dL (70-105); Lipase 39 U/L (8-78); Magnesium 2.3 mg/dL (1.6-2.6); Potassium 4.2 mmol/L (3.5-5.1); Protein, Total 8.8 g/dL (6.0-8.3); Sodium 139 mmol/L (136-145)
[2019-12-31 11:53] LABS: Carbon Dioxide 8 mmol/L (22-29)
[2019-12-31 11:59] LABS: Band 18 % (5-11); Hemoglobin 17.4 g/dL (14.0-18.0); Lymphocytes 2 % (21-51); MDiff Complete? YES; Mean Corpuscular HGB CONC 32.4 g/dL (32.0-36.0); Mean Corpuscular Hemoglobin 30.3 pg (27.0-31.0); Mean Corpuscular Volume 93.5 fL (78.0-98.0); Mean Platelet Volume 8.4 fL (7.4-10.4); Monocytes 2 % (0-10); Neutrophil 78 % (42-75); Platelet Clumps MODERATE; Platelet Morphology Comment PLT clumps seen-ADEQ; RBC Morphology Normal; Red Blood Cell (RBC) Count 5.76 mill/uL (4.70-6.10)
[2019-12-31 12:28] LABS: Bacteria/HPF None Seen HPF (None Seen); Bilirubin Negative (Negative); Blood, Urine Negative (Negative); Clarity Clear (Clear); Glucose, Urine (Dipstick) Normal (Negative); Ketone, Urine Greater than 150 mg/dL (Negative); Leukocyte Negative Leu/uL (Negative); Nitrite Negative (Negative); Protein, Urine (Dipstick) 30 mg/dL (Neg-Trace); RBC/HPF 0-3 HPF (0-3); Specific Gravity, Urine 1.017 (1.002-1.036); Squamous Epithelial None Seen HPF (0-3); Urobilinogen Normal mg/dL (Less than 2); WBC/HPF 0-3 HPF (0-3); pH, Urine 5.5 (5.0-9.0)
[2019-12-31] MEDS ORDERED: Multivitamins, Adult 10 ML, Thiamine HCl 100 MG, Folic Acid 1 MG in Dextrose 5 %-0.45 %... IV SCH (12:30)
[2019-12-31 12:34] LABS: Medtox Reader # READER 4
[2019-12-31 12:35] LABS: Amphetamine Not Detected (NotDetected); Barbiturates Screen Not Detected (NotDetected); Benzodiazepine Screen Not Detected (NotDetected); Cocaine Metabolite Screen Not Detected (NotDetected); Medtox Control Line Valid? VALID (VALID); Methadone Not Detected (NotDetected); Methamphetamine Not Detected (NotDetected); Opiate Screen Not Detected (NotDetected); Oxycodone Screen Not Detected (NotDetected); Phencyclidine (PCP) Not Detected (NotDetected); THC/Cannabinoid Screen Detected (NotDetected); Tricyclic Screen Not Detected (NotDetected)
[2019-12-31] MEDS ORDERED: Thiamine 100 MG TAB ONE (13:45)
[2019-12-31] MEDS ORDERED: Acetaminophen 325 MG TAB PO PRN (15:12)
[2019-12-31] MEDS ORDERED: Acetaminophen 650 MG Suppository PR PRN (15:12)
[2019-12-31] MEDS ORDERED: Ondansetron ODT 4 MG TAB PO PRN (15:12)
[2019-12-31] MEDS ORDERED: Ondansetron PF 4 MG/2 ML Vial IVP PRN (15:12)
--- NOTE | 2019-12-31 15:21 | PDOC.FPRHP ---
- History of Present Illness Chief Complaint: Vomiting History of Present Illness: Patient is a 29 year old male with a history of alcohol abuse and withdrawl seizures who presents to the ED with complaints of nausea, vomiting yellow bile and diffuse abdominal pain since last pm. Patient says symptoms began after drinking 10 40 oz beers last pm. He reports vomiting "like 100 times" since last night and reports blood mixed into yellow vomiting this am. He says the abdominal pain does not radiate and describes it as 'burning." He also complaints of intermittent sharp chest pain while vomiting, lower back pain, blurry vision, palpitations, and numbness/tingling in all extremities since last night. He notes melena intermittently over the past few months with most recent episode yesterday. He has experienced similar symptoms in the past after binge drinking. Recently admitted on 12/06-12/08/19 for alcohol withdrawal and delirium tremens. Seen in the ED on 12/11/19 for alcohol withdrawal and discharged home. Reports admission in 05/31 with seizure during withdrawal. EGD and colonoscopy completed 02/27 inpatient in [place], reportedly normal. ED Course: Tachycardic in 120s on arrival. BP elevated at 152/106. Vomiting in ED, no blood present. Recieved 1 L NS, 40mg IV Protonix, GI cocktail, Banana Bag, and Zofran 4mg. Reports nausea has improved. - Allergies/Adverse Reactions Allergies Allergy/AdvReac Type Severity Reaction Status Date / Time No Known Allergies Allergy Verified 06/30/19 21:38 - Home Medications Medication Instructions Recorded Confirmed Type No Known 07/07/17 12/31/19 History - History PMHx: Alcohol abuse, withdrawal seizure, schizophrenia PSHx: None FHx: Father - DM, Paternal Aunt - DM. No family hx of cancer. Social: Reports ETOH use since childhood. Reports binge drinking activities weekly, ranging minimum 3 40z to 15+ 40z beer per day. Smokes 2 cigs/day. Lives with roommate. Reports occasional marijuana use. - Review of Systems General: denies: fever/chills, night sweats Eyes: reports: vision changes. denies: eye pain ENT: denies: nasal congestion, rhinorrhea Respiratory: denies: cough, shortness of breath Cardiovascular: reports: chest pain, palpitation. denies: edema Gastrointestinal: reports: nausea, vomiting, abdominal pain. denies: diarrhea, constipation Genitourinary: denies: dysuria, polyuria Skin: denies: rashes, jaundice Musculoskeletal: denies: pain, swelling Neurological: reports: numbness. denies: syncope, seizure, weakness Psychological: denies: anxiety, depression - Vital signs BP: [152/106] HR: [125] RR: [17] Tmax: [98.4F] Pox: [99]% on [RA] Wt: [63.5kg] - Physical Exam Constitutional: NAD, awake, alert and oriented HEENT: normocephalic and atraumatic, PERRLA, EOMI, conjunctiva clear, no scleral icterus, grossly normal hearing, MMM, good dention -HEENT: Braces in place Neck: supple, trachea midline Chest: no-tender to palpation, no lesions Heart: RRR, normal S1/S2, pulses present, no edema Lungs: CTAB, no respiratory distress, good air movement Abdomen: soft, bowel sounds present, no masses/distention -Abdomen: Mild diffuse tenderness Musculoskeletal: normal structure, normal tone, ROM grossly normal Neurological: no focal deficit, CN II-XII intact, normal sensation -Neurological: Resting tremor in hands bilaterally Skin: good turgor, no jaundice Heme/Lymphatic: no purpura, no petechia Psychiatric: normal mood and affect, intact recent and remote memory FMR H&P: Results - Labs Result Diagrams: 01/01/20 03:13 01/01/20 03:13 Lab results: WBC 14.0 thou/uL (4.8-10.8) H 12/31/19 11:01 Hgb 17.4 g/dL (14.0-18.0) 12/31/19 11:01 Hct 53.8 % (42.0-52.0) H 12/31/19 11:01 MCV 93.5 fL (78.0-98.0) 12/31/19 11:01 Plt Count TNP 12/31/19 11:01 Band Neuts % (Manual) 18 % (5-11) H 12/31/19 11:01 Sodium 139 mmol/L (136-145) 12/31/19 11:01 Potassium 4.2 mmol/L (3.5-5.1) 12/31/19 11:01 Chloride 98 mmol/L (98-107) 12/31/19 11:01 Carbon Dioxide 8 mmol/L (22-29) L* 12/31/19 11:01 BUN 9 mg/dL (8.9-20.6) 12/31/19 11:01 Creatinine 0.97 mg/dL (0.7-1.3) 12/31/19 11:01 Glucose 104 mg/dL (70-105) 12/31/19 11:01 Calcium 9.5 mg/dL (7.8-10.44) 12/31/19 11:01 Total Bilirubin 1.5 mg/dL (0.2-1.2) H 12/31/19 11:01 AST 357 U/L (5-34) H 12/31/19 11:01 ALT 197 U/L (8-55) H 12/31/19 11:01 Alkaline Phosphatase 121 U/L (40-110) H 12/31/19 11:01 Creatine Kinase 115 U/L (30-200) 12/31/19 11:01 Serum Total Protein 8.8 g/dL (6.0-8.3) H 12/31/19 11:01 Albumin 5.2 g/dL (3.5-5.0) H 12/31/19 11:01 Lipase 39 U/L (8-78) 12/31/19 11:01 Urine Ketones Greater than 150 mg/dL (Negative) A 12/31/19 12:01 Urine Blood Negative (Negative) 12/31/19 12:01 Urine Nitrite Negative (Negative) 12/31/19 12:01 Ur Leukocyte Esterase Negative Anjelica/uL (Negative) 12/31/19 12:01 Urine RBC 0-3 HPF (0-3) 12/31/19 12:01 Urine WBC 0-3 HPF (0-3) 12/31/19 12:01 Ur Squamous Epith Cells None Seen HPF (0-3) 12/31/19 12:01 Urine Bacteria None Seen HPF (None Seen) 12/31/19 12:01 - EKG Interpretation EKG: Tachycardic. NSR. No ST segment changes. FMR H&P: A/P - Plan Acute alcohol withdrawal Hx withdrawal seizures Hx delirium tremens Hx alcohol abuse Reported drinking 10 40oz beers last pm, alcohol level 149 in ED. Recieved 1L NS, 40mg IV protonix, GI cocktail, banana bag and zofran in ED. -ASE protocol -Due to hx seizures during withdrawal, will schedule Lorazepam 2mg Q6H over first 24 hours then taper -IV folate, thiamine daily -F/u RUQ US ordered in ED -1L bolus LR then maintenance fluids at 100 -Protonix 40mg IV once daily -Zofran PRN -Counselled on abstinence and AA Anion gap metabolic acidosis 2/2 vomiting In ED bicarb 8, anion gap of 30. -ABG to determine acid/base status Transaminitis 2/2 alcohol use In ED: WBC 14 with bands, bili 1.5, AST 357, ALT 197, Alk phos 121. -INR level for MELD calculation -Hepatitis panel -Daily CMP Hyperbilirubinema -Total bili 1.5 in ED -Monitor with am labs Reported GI bleed Patient reports intermittent melena for multiple months, hematochezia this am. Upper and lower scope completed 02/27, reportedly normal. Hgb 17.4 -Daily CBC -Consult GI -NPO for possible scope in am Hx marijuana use -Drug screen + for marijuana Schizophrenia -No home medications PCP: None, bounce back Code: FULL Dispo: Admit to inpatient IMCU, expected LOS > 48 hours FMR H&P: Upper Level - Plan Date/Time: 12/31/19 1521 IHuang DO, have evaluated this patient and agree with findings/plan as outlined by sales and marketing intern resident. Pertinent changes/additions are listed here. This is a 29 yo male with an extensive pmh of alcohol abuse and DTs who presents to the ER with a cc of vomiting, malaise, and anxiety. He states that his last drink was last night. He had 10 40oz beers. He states this morning he felt ill and tried to drink something but began vomiting a reported significant amount. He also reports some streaks of blood in his previous vomit but none in the ER. He states that he is feeling shaking but denies any hallucinations. He reports some burning chest pain at this time. He appears mildly anxious but does not a ppear agitated. He has some mild shaking but is speaking calmly in a reasonable tone. Cardio: tachycardic, no murmurs, Respiratory: CTAB, abdomen: Soft, mild tenderness, BS+. His labs to not indicate severe liver damage at this time. Please seen sales and marketing intern note for further information. A/P: 1) acute alcohol withdraw with history of DTs- ASE protocol, Scheduled and PRN benzodiazepines, thiamine/folate replacement, education on alcohol cessation. 2) Acute anion ander metabolic acidosis likely 2/2 vomiting/alcohol use: Will monitor electrolytes via BMP, fluid resuscitation with LR. Transamnitits 2/2 alcohol abuse: Will trend AST/ALT and hydrate. Hyperbiliruminemia: likely 2/2 liver injury, will monitor. Meld score is likely 10, pending INR. Platelet clumping, will monitor with repeat CBC. Code: Full Prophylaxis: Protonix Family: None at bedside Fluids: LR at 100ml/hr Diet: NPO, can adjust with improved symptoms Disposition: DC in 3-4 days PCP: None Addendum - Attending - Attending Attestation Date/Time: 01/01/20 2759 I personally evaluated the patient and discussed the management with Dr. Kimball. I agree with the History, Examination, Assessment and Plan documented above with any addition or exceptions noted below.
[2019-12-31] MEDS ORDERED: Diazepam 5 MG TAB PO PRN (15:26)
[2019-12-31] MEDS ORDERED: Thiamine HCl 200 MG/2 ML VIAL IM SCH (15:30)
[2019-12-31] MEDS ORDERED: Diazepam 5 MG TAB PO SCH (15:30)
[2019-12-31] MEDS ORDERED: Lactated Ringer's 1,000 ML IV SCH (15:30)
[2019-12-31 16:42] VITALS: BMI 20.7
[2019-12-31 17:33] LABS: Actual Bicarbonate (HCO3a) 18.2 mEq/L (22-28); Base Excess (BEa) -5.4 mEq/L (-2.0 to +3.0); CO2 Tension 30.4 mmHg (35.0-45.0); Calcium, Ionized (arterial) 1.09 mmol/L (1.12-1.30); Carboxyhemoglobin (COHb) 0.6 gm% (0.0-3.0); O2 Tension (PaO2), arterial 98.2 mmHg (80.0-100.0); Potassium - ABG Lab 4.25 mmol/L (3.70-5.30); pH, Arterial 7.39 (7.35-7.45)
[2019-12-31 17:34] LABS: Puncture Site RRA
[2019-12-31 17:42] LABS: INR-International Normal Ratio 0.9; Prothrombin Time 12.2 sec (12.0-14.7)
[2019-12-31 17:59] LABS: ALT (SGPT) 179 U/L (8-55); AST (SGOT) 339 U/L (5-34); Albumin 4.7 g/dL (3.5-5.0); Alkaline Phosphatase 104 U/L (40-110); Bilirubin, Direct 0.6 mg/dL (0.1-0.3); Bilirubin, Total 1.3 mg/dL (0.2-1.2); Protein, Total 7.9 g/dL (6.0-8.3)
[2019-12-31] MEDS: Lorazepam 2 MG/ML VIAL SLOW IVP SCH (18:15)
[2019-12-31] MEDS: Lactated Ringer's 1,000 ML IV SCH ×2 (19:48→21:03)
--- NOTE | 2019-12-31 22:33 | CON ---
DATE OF CONSULTATION: 12/31/2019 REQUESTING PHYSICIANS: Dr. Kimball. REASON FOR CONSULTATION: Hematemesis and alcoholic liver disease. HISTORY OF PRESENT ILLNESS: Keyon Kwon is a 29-year-old man with a long history of heavy alcohol abuse and withdrawal seizures. He has been hospitalized several times over the past year with DTs and other withdrawal symptoms. He reports that he was hospitalized in February 2019 in [place], at that time was having hematemesis. He says he underwent an EGD and a colonoscopy and is not quite sure of the findings, but thinks that everything looked good, but at any rate, he has continued to drink quite heavily. He says he was particularly on a binge the past few days and beginning yesterday started having significant generalized abdominal pain, sometimes radiating up into the chest, associated with nausea and multiple episodes of emesis. Many of these episodes of emesis were nonbloody, but this morning he had several episodes with red blood in the emesis. He says this has occurred off and on through the past few months. He has also had some intermittent dark tarry stools the past few months. Upon presentation, he does have some elevation in LFTs. Blood alcohol level of 149, hemoglobin 17.4. He was started on IV pantoprazole. REVIEW OF SYSTEMS: Full review of systems including constitutional, head, eyes, ears, nose, throat, GI, , cardiovascular, respiratory, musculoskeletal, neurologic systems is negative except as noted in the HPI. PAST MEDICAL HISTORY: 1. Alcohol abuse. 2. Alcohol withdrawal seizures. 3. Delirium tremens. ALLERGIES: NO KNOWN DRUG ALLERGIES. OUTPATIENT MEDICATIONS: None. SOCIAL HISTORY: Smoking and marijuana use are rare. He drinks alcohol very heavily and has for many years particularly has been on a binge for the past few days. FAMILY HISTORY: Noncontributory. PHYSICAL EXAMINATION: VITAL SIGNS: Temperature 98.8, pulse 98, blood pressure 147/102, 99% oxygen saturation on room air. GENERAL: A 29-year-old man lying in bed comfortably, in no distress. MENTAL: He is alert and oriented. He is able to answer questions appropriately. SKIN: No jaundice, no rashes were palpable. EYES: No scleral icterus. Extraocular movements intact. ENT: Mucous membranes moist. No oral lesions. LYMPH: No submandibular, supraclavicular lymphadenopathy. THYROID: Nontender to palpation. HEART: Regular borderline tachycardia. No murmur. LUNGS: Clear to auscultation bilaterally. ABDOMEN: Bowel sounds present. Soft. Diffuse tenderness to palpation throughout the abdomen, but no guarding, rebound tenderness. Nondistended. EXTREMITIES: No peripheral edema. VESSELS: Radial pulses 2+ bilaterally. NEUROLOGIC: Cranial nerves 2-12 intact bilaterally. No focal deficits. LABORATORY STUDIES: WBC is 14, hemoglobin 17.4, platelets are clumped. Sodium 139, potassium 4.2, chloride 98, bicarb is 8, BUN 9, creatinine 0.97, total bilirubin elevated to 1.5, alkaline phosphatase 121, AST is elevated to 357, ALT elevated to 197, albumin 5.2, blood alcohol level is 149. Urine tox screen is positive for cannabinoids. Tylenol and salicylates are negative. CK is 115. Troponin negative. Lipase only 39. IMAGING STUDIES: Chest x-ray is negative. ASSESSMENT/PLAN: 1. Hematemesis. 2. Alcohol withdrawal, with nausea and vomiting. 3. Epigastric pain. 4. Alcoholic hepatitis. Regarding the hematemesis, he evidently had upper and [place] endoscopy [place], but he is not sure of what the results were. I doubt that he has esophageal varices and current presentation is not consistent with variceal bleed, but more likely represents erosive esophagitis or perhaps Kadi-Krishna tear. I do think we should pursue further investigation. We will plan for esophagogastroduodenoscopy tomorrow. Continue the IV Protonix until then. I do not think octreotide will be necessary unless the clinical situation changes. Hemoglobin is 17.4, but this is likely hemoconcentrated. 5. Regarding the alcoholic hepatitis, we are awaiting INR level. I had a long discussion with the patient that this has the potential to be very serious, particularly with recurrent presentations. He does not have any other evidence of liver decompensation. Trend the liver function tests tomorrow. Agree with plan to get abdominal ultrasound. Should also get viral hepatitis serologies with morning labs. He is going to need to completely abstain from all alcohol going forward and I made this quite clear to him. Job ID: [id number]
[2020-01-01] MEDS: Lorazepam 2 MG/ML VIAL SLOW IVP SCH ×4 (02:09→20:24)
[2020-01-01 03:28] LABS: #Lymphocytes 1.6 thou/uL (1.20-3.40); #Monocytes 0.8 thou/uL (0.11-0.59); #Neutrophils 4.1 thou/uL (1.40-6.50); %Basophils 0.7 % (0.0-1.0); %Eosinophils 0.7 % (0.0-10.0); %Lymphocytes 24.1 % (21.0-51.0); %Monocytes 12.5 % (0.0-10.0); Mean Corpuscular HGB CONC 33.8 g/dL (32.0-36.0); Mean Corpuscular Hemoglobin 31.4 pg (27.0-31.0); Mean Corpuscular Volume 92.9 fL (78.0-98.0); Mean Platelet Volume 7.2 fL (7.4-10.4); Platelet Count 150 thou/uL (130-400); RBC Distribution Width 12.8 % (11.5-14.5); Red Blood Cell (RBC) Count 4.78 mill/uL (4.70-6.10); White Blood Cell (WBC) Count 6.6 thou/uL (4.8-10.8)
[2020-01-01 03:44] LABS: ALT (SGPT) 132 U/L (8-55); AST (SGOT) 218 U/L (5-34); Albumin 3.7 g/dL (3.5-5.0); Alkaline Phosphatase 87 U/L (40-110); Anion Gap 15 mmol/L (10-20); BUN (Urea Nitrogen) 8 mg/dL (8.9-20.6); Bilirubin, Total 1.5 mg/dL (0.2-1.2); Calc. Creatinine Clearance 122 mL/min (70-130); Calcium 8.2 mg/dL (7.8-10.44); Carbon Dioxide 21 mmol/L (22-29); Chloride 103 mmol/L (98-107); Estimated GFR-MDRD Greater than 90; Globulin 2.5 g/dL (2.4-3.5); Glucose 82 mg/dL (70-105); Potassium 3.9 mmol/L (3.5-5.1); Protein, Total 6.2 g/dL (6.0-8.3); Sodium 135 mmol/L (136-145)
[2020-01-01 04:11] LABS: HBCM Index 0.06 S/CO (0-0.79); HBSAg Index 0.26 S/CO (0-0.99); Hep A IgM AB Non-Reactive (NonReactive); Hep A IgM S/CO 0.27 S/CO (0-0.79); Hep B Surf Ag Non-Reactive S/CO (NonReactive); Hep C IgG Ab Non-Reactive (NonReactive); Hep C Index 0.06 S/CO (0-0.79); Hepatitis B Core IgM Abs Non-Reactive (NonReactive)
--- NOTE | 2020-01-01 05:43 | PDOC.FM ---
- Subjective Subjective: Patient reports mild, diffuse abdominal pain that has improved since arrival to the ED. He notes one episode of chest tightness overnight that resolved shortly after occurring. He notes improvement of tremors, nausea and 2 episodes of vomiting without blood overnight. He reports nightmares overnight that have occurred with previous withdrawals. He denies headache, chest pain, SOB, and visual/auditory/tactile hallucinations. - Objective MAR Reviewed: Yes Vital Signs & Weight: Vital Signs (12 hours) Temp BP Pulse Ox 01/01/20 04:00 98.8 F 133/92 H 01/01/20 00:00 98.9 F 134/80 12/31/19 20:00 98.7 F 158/102 H 100 Weight Weight 63.5 kg Most Recent Monitor Data Heart Rate from ECG 82 NIBP 135/99 NIBP BP-Mean 111 Respiration from ECG 16 SpO2 99 Result Diagrams: 01/01/20 03:13 01/01/20 03:13 Phys Exam - Physical Examination Constitutional: NAD HEENT: moist MMs, sclera anicteric Neck: supple, full ROM Respiratory: no wheezing, clear to auscultation bilateral Cardiovascular: RRR, no significant murmur Gastrointestinal: soft, non-tender, no distention, positive bowel sounds Musculoskeletal: no edema, pulses present Neurological: non-focal, normal sensation, moves all 4 limbs Slight tremor, greatly improved from yesterday Psychiatric: normal affect, A&O x 3 Skin: normal turgor, cap refill <2 seconds Dx/Plan - Plan Plan: Acute alcohol withdrawal Hx withdrawal seizures Hx delirium tremens Hx alcohol abuse Reported drinking 10 40oz beers last pm, alcohol level 149 in ED. + nightmares overnight, tremor improved. -ASE protocol in place -Due to hx seizures during withdrawal, continue Lorazepam 2mg Q6H scheduled over first 24 hours then taper -Continue IV folate, thiamine daily -Continue maintanence fluids LR @ 100 -Continue Protonix 40mg IV once daily -Zofran PRN -Counselled on abstinence and AA Anion gap metabolic acidosis, improved 2/2 vomiting In ED bicarb 8, anion gap of 30. ABG showed pH 7.39, CO2 30.4, O2 98.2. -This am, anion gap of 11.8 -Continue to monitor with am labs Alcoholic hepatitis In ED: WBC 14 with bands, bili 1.5, AST 357, ALT 197, Alk phos 121. MELD score: 8. Hepatitis panel negative. -Trend LFTs -Daily CMP -Continue IV fluids Reported GI bleed Patient reports intermittent melena for multiple months, hematemesis 12/30 am. Upper and lower scope completed 02/27, reportedly normal. -Hgb 17.4 on admission, likely elevated due to hemoconcentration, now 15.0 -Daily CBC -Dr. Todd, GI, consulted. Scheduled for EGD this am Fatty liver disease -RUQ US showed diffuse fatty liver Hx marijuana use -Drug screen + for marijuana Schizophrenia -No home medications PCP: None, bounce back Code: FULL Dispo: Home pending symptom improvement and EGD results Addendum - Attending - Attending Attestation Date/Time: 01/01/20 3870 I personally evaluated the patient and discussed the management with Dr. Kimball. I agree with the History, Examination, Assessment and Plan documented above with any addition or exceptions noted below.
[2020-01-01] MEDS: Lactated Ringer's 1,000 ML IV SCH ×2 (06:02→20:25)
--- NOTE | 2020-01-01 07:38 | ULT ---
RIGHT UPPER QUADRANT ULTRASOUND CLINICAL HISTORY: Abdominal pain with nausea vomiting and elevated LFTs. COMPARISON: None FINDINGS: Liver:There is diffuse fatty liver. No focal hepatic lesion. Intrahepatic bile ducts: No intrahepatic or extrahepatic biliary dilation.; Common bile duct: 2.7 mm. Gallbladder: Normal appearing. Mahmood's sign:None Main portal vein:Patent with hepatopedal flow. Pancreas:Largely obscured Right kidney: Right kidney measures 9.5 x 4.2 x 4.1 cm. No focal renal lesion or hydronephrosis. Additional findings: None. IMPRESSION: Diffuse fatty liver
[2020-01-01] MEDS ORDERED: Pantoprazole 40 MG VIAL IVP SCH (09:00)
[2020-01-01] MEDS: Folic Acid 1 MG TAB PO SCH (09:31)
[2020-01-01] MEDS: Magnesium Oxide 400 MG TAB PO SCH (09:31)
[2020-01-01] MEDS: Multivitamin W/ Minerals 1 TAB PO SCH (09:31)
[2020-01-01] MEDS: Thiamine 100 MG TAB PO SCH (09:31)
[2020-01-01 13:27] LABS: SARS-CoV-2 MS2 Positive; SARS-CoV-2 N Gene Negative; SARS-CoV-2 S Gene Negative; SARS-CoV-2 by NAA Not Detected (NotDetected); SARS-CoV-2 orf1ab Negative
[2020-01-01] MEDS ORDERED: PROPOFOL 200 MG/20 ML VIAL ONE (13:59)
[2020-01-01] MEDS ORDERED: Lidocaine 1% PF 5 ML VIAL ONE (13:59)
[2020-01-01] MEDS ORDERED: Promethazine HCl 25 MG/ML VIAL IM PRN (16:35)
[2020-01-01] MEDS ORDERED: Promethazine HCl 25 MG/ML VIAL SLOW IVP PRN (16:35)
[2020-01-01] MEDS ORDERED: Ondansetron HCl/PF 4 MG/2 ML Vial IVP PRN (16:35)
--- NOTE | 2020-01-01 21:29 | OP ---
DATE OF PROCEDURE: 01/01/2020 PROCEDURE PERFORMED: Esophagogastroduodenoscopy with biopsy. INDICATION FOR PROCEDURE: Hematemesis. DESCRIPTION OF PROCEDURE: After the risks and benefits of the procedure were explained to the patient including risks of bleeding, infection, perforation, reactions to anesthesia, aspiration, and/or pain, informed consent was obtained. The patient was then taken to the endoscopy suite, where he was maneuvered into the left lateral decubitus position, followed by introduction of deep sedation via propofol and anesthesia support. Once adequate sedation was achieved, the standard gastroscope was introduced into the mouth with intubation of the esophagus, stomach, and the proximal small intestines with the findings listed below. The patient tolerated the procedure well with no immediate perioperative complications. On conclusion of the procedure, all equipment was removed from the patient and he was transferred to PACU in satisfactory condition. FINDINGS: Esophagus: Normal-appearing mucosa was seen in both the proximal and mid esophagus; however, in the distal esophagus located at the gastroesophageal junction, 4 to 5 linear erosions were seen extending proximally from the gastroesophageal junction approximately 1 cm in length. They did not extend between esophageal folds nor did they exhibit any evidence of active or recent bleeding. Otherwise, normal-appearing mucosa was seen in this region. Stomach: Diffuse mild mucosal erythema was seen in the gastric cardia and fundus of the body without any associated erosions or ulcerations. Patches measuring 3 to 5 mm in diameter were also seen in the distal gastric body, but again not associated with any erosions or ulcerations. Random biopsies were taken from these patches of mucosal erythema from both the body and the fundus and placed in a specimen jar for further evaluation. A small red spot was seen in the gastric cardia measuring 1 to 2 mm in diameter, but did not display any evidence of active or recent bleeding. An additional red spot was seen in the gastric fundus, but again did not display any evidence of active or recent bleeding. Otherwise, normal-appearing mucosa was seen along the antrum and incisura. There was no evidence of erosions, ulcerations, mass lesions, or active/recent bleeding seen throughout the entire stomach. Duodenum: Normal-appearing mucosa was seen in both the duodenal bulb and second portion of the duodenum. There was no evidence of erosions, ulcerations, mass lesions, or active/recent bleeding. IMPRESSION: 1. LA grade B reflux-mediated erosive esophagitis. 2. Mild diffuse mucosal erythema seen in the proximal stomach and small patches in the mid to distal stomach, now status post random biopsies. 3. Two small red spots seen in the gastric cardia and fundus, unlikely to be the source of the patient's recent hematemesis. RECOMMENDATIONS: 1. We would continue to trend the patient's H and H and transfuse as necessary to maintain an H and H of 7/21. 2. Continue to monitor clinically for signs of active GI bleeding. 3. We would continue the patient on pantoprazole , but could transfer to oral formulation tomorrow. 4. We will continue to trend the patient's liver enzymes in addition to INR daily for resolution of his alcoholic hepatitis. 5. Agree with placing the patient on an alcohol withdrawal protocol in addition to thiamine and folate administration. 6. Strongly encourage continued alcohol cessation. 7. Follow up on viral hepatitis serologies and other liver workup. We will continue to follow. Please call with any questions. Job ID: [id number]
[2020-01-01] MEDS: Diazepam 5 MG TAB PO PRN (23:56)
[2020-01-02] MEDS: Lorazepam 2 MG/ML VIAL SLOW IVP SCH ×2 (03:15→06:14)
[2020-01-02 03:28] LABS: #Basophils 0.1 thou/uL (0.0-0.2); #Eosinphils 0.1 thou/uL (0.0-0.7); #Lymphocytes 1.4 thou/uL (1.20-3.40); #Monocytes 0.6 thou/uL (0.11-0.59); #Neutrophils 6.4 thou/uL (1.40-6.50); %Basophils 0.7 % (0.0-1.0); %Eosinophils 0.8 % (0.0-10.0); %Lymphocytes 16.7 % (21.0-51.0); %Monocytes 7.4 % (0.0-10.0); %Neutrophils 74.4 % (42.0-75.0); Hemoglobin 15.2 g/dL (14.0-18.0); Mean Corpuscular HGB CONC 33.1 g/dL (32.0-36.0); Mean Corpuscular Hemoglobin 30.7 pg (27.0-31.0); Mean Corpuscular Volume 92.7 fL (78.0-98.0); Mean Platelet Volume 7.5 fL (7.4-10.4); Platelet Count 125 thou/uL (130-400); RBC Distribution Width 12.7 % (11.5-14.5); Red Blood Cell (RBC) Count 4.96 mill/uL (4.70-6.10); White Blood Cell (WBC) Count 8.6 thou/uL (4.8-10.8)
[2020-01-02 03:49] LABS: ALT (SGPT) 156 U/L (8-55); AST (SGOT) 214 U/L (5-34); Albumin 3.9 g/dL (3.5-5.0); Alkaline Phosphatase 82 U/L (40-110); Anion Gap 17 mmol/L (10-20); BUN (Urea Nitrogen) 4 mg/dL (8.9-20.6); Bilirubin, Total 1.1 mg/dL (0.2-1.2); Calc. Creatinine Clearance 147 mL/min (70-130); Calcium 8.6 mg/dL (7.8-10.44); Carbon Dioxide 23 mmol/L (22-29); Chloride 98 mmol/L (98-107); Estimated GFR-MDRD Greater than 90; Globulin 2.6 g/dL (2.4-3.5); Glucose 72 mg/dL (70-105); Potassium 3.8 mmol/L (3.5-5.1); Protein, Total 6.5 g/dL (6.0-8.3); Sodium 134 mmol/L (136-145)
--- NOTE | 2020-01-02 05:39 | PDOC.FM ---
- Subjective Subjective: Patient reports possible visual hallucination last pm described as seeing someone standing at the door when it was clear. He also notes tremors and mild diffuse abdominal pain overnight. He denies headache, vision changes, chest pain, SOB, nausea, vomiting over past 24 hours, and auditory/tactile hallucinations. Patient says he has been reflecting on his history of alcohol use and wants to make a change. He says he has been in contact with [employer] and is getting back in touch with his josé miguel again. He is interested in rehab after discharge and would like more information on his options. - Objective MAR Reviewed: Yes Vital Signs & Weight: Vital Signs (12 hours) Temp BP Pulse Ox 01/02/20 04:00 98.6 F 114/80 01/01/20 23:57 98.1 F 01/01/20 20:00 98.6 F 149/99 H 97 Weight Weight 63.5 kg Most Recent Monitor Data Heart Rate from ECG 82 NIBP 128/82 NIBP BP-Mean 97 Respiration from ECG 18 SpO2 98 I&O: 12/31/19 01/01/20 01/02/20 06:59 06:59 06:59 Intake Total 2258 Output Total 191 Balance 2258 -191 Result Diagrams: 01/02/20 03:14 01/02/20 03:13 Phys Exam - Physical Examination Constitutional: NAD HEENT: moist MMs, sclera anicteric Neck: supple, full ROM Respiratory: no wheezing, clear to auscultation bilateral Cardiovascular: RRR, no significant murmur Gastrointestinal: soft, non-tender, positive bowel sounds Musculoskeletal: no edema, pulses present Neurological: non-focal, normal sensation, moves all 4 limbs Psychiatric: normal affect, A&O x 3 Skin: no rash, normal turgor Dx/Plan - Plan Plan: Acute alcohol withdrawal Hx withdrawal seizures Hx delirium tremens Hx alcohol abuse Reported drinking 10 40oz beers on 12/29 pm, alcohol level 149 in ED. + nightmares overnight, tremor improved. -ASE protocol in place -Required Valium 5mg x 1 last pm due to ASE score 10, will continue Lorazepam 2mg Q6H scheduled -Continue IV folate, thiamine daily -Continue maintanence fluids LR @ 100 -Switch from Protonix 40mg IV to PO once daily -Zofran PRN -Extensive conversation about abstinence and ways to cope with life stressors. Placed CM consult to investigate rehab options. Also placed spiritual consult as patient requested prayer with a leader of [employer] Anion gap metabolic acidosis, resolved 2/2 vomiting In ED bicarb 8, anion gap of 30. ABG showed pH 7.39, CO2 30.4, O2 98.2. -On 12/31 anion gap of 11.8, now 13.0 -Continue to monitor with am labs Alcoholic hepatitis In ED: WBC 14 with bands, bili 1.5, AST 357, ALT 197, Alk phos 121. MELD score: 8. Hepatitis panel negative. -LFTs improving, continue to trend -Trend INR daily -Daily CMP -Continue IV fluids LA Grade B erosive esophagitis Patient reports hematemesis 12/30 am. EGD on 12/31 showed LA grade B reflux- mediated erosive esophagitis and mucosal erythema -H/H stable, continue to trend -Dr. Todd, GI, consulted. F/u recs -F/u biopsy results Steatohepatitis -RUQ US showed diffuse fatty liver Hx marijuana use -Drug screen + for marijuana Schizophrenia -No home medications PCP: None, bounce back Code: FULL Dispo: Home pending further medical management Addendum - Attending - Attending Attestation Date/Time: 01/02/20 2905 I personally evaluated the patient and discussed the management with Dr. Kimball. I agree with the History, Examination, Assessment and Plan documented above with any addition or exceptions noted below.
[2020-01-02 06:42] LABS: Prothrombin Time 12.8 sec (12.0-14.7)
[2020-01-02] MEDS: Folic Acid 1 MG TAB PO SCH (09:01)
[2020-01-02] MEDS: Magnesium Oxide 400 MG TAB PO SCH (09:01)
[2020-01-02] MEDS: Thiamine 100 MG TAB PO SCH (09:02)
[2020-01-02] MEDS: Multivitamin W/ Minerals 1 TAB PO SCH (09:02)
[2020-01-02] MEDS: Diazepam 5 MG TAB PO PRN (09:13)
[2020-01-02] MEDS: chlordiazePOXIDE HCl 25 MG CAP PO SCH ×3 (12:48→23:38)
[2020-01-02] MEDS: Lactated Ringer's 1,000 ML IV SCH ×2 (12:49→23:45)
[2020-01-03] MEDS: Diazepam 5 MG TAB PO PRN (03:20)
[2020-01-03 03:49] LABS: #Eosinphils 0.2 thou/uL (0.0-0.7); #Lymphocytes 2.1 thou/uL (1.20-3.40); #Monocytes 0.7 thou/uL (0.11-0.59); #Neutrophils 2.6 thou/uL (1.40-6.50); %Basophils 0.4 % (0.0-1.0); %Eosinophils 2.7 % (0.0-10.0); %Lymphocytes 37.7 % (21.0-51.0); %Monocytes 12.4 % (0.0-10.0); %Neutrophils 46.7 % (42.0-75.0); Hemoglobin 15.1 g/dL (14.0-18.0); Mean Corpuscular HGB CONC 32.8 g/dL (32.0-36.0); Mean Corpuscular Hemoglobin 30.4 pg (27.0-31.0); Mean Corpuscular Volume 92.9 fL (78.0-98.0); Mean Platelet Volume 7.9 fL (7.4-10.4); Platelet Count 124 thou/uL (130-400); RBC Distribution Width 12.6 % (11.5-14.5); Red Blood Cell (RBC) Count 4.95 mill/uL (4.70-6.10); White Blood Cell (WBC) Count 5.6 thou/uL (4.8-10.8)
[2020-01-03 03:51] LABS: INR-International Normal Ratio 0.9; Prothrombin Time 11.9 sec (12.0-14.7)
[2020-01-03 04:10] LABS: ALT (SGPT) 150 U/L (8-55); AST (SGOT) 148 U/L (5-34); Alkaline Phosphatase 90 U/L (40-110); Anion Gap 13 mmol/L (10-20); BUN (Urea Nitrogen) 4 mg/dL (8.9-20.6); Bilirubin, Total 0.7 mg/dL (0.2-1.2); Calc. Creatinine Clearance 138 mL/min (70-130); Calcium 8.9 mg/dL (7.8-10.44); Carbon Dioxide 26 mmol/L (22-29); Chloride 103 mmol/L (98-107); Estimated GFR-MDRD Greater than 90; Globulin 2.6 g/dL (2.4-3.5); Glucose 95 mg/dL (70-105); Potassium 3.6 mmol/L (3.5-5.1); Protein, Total 6.6 g/dL (6.0-8.3); Sodium 138 mmol/L (136-145)
--- NOTE | 2020-01-03 05:58 | PDOC.FM ---
- Subjective Subjective: Patient reports visual hallucinations once overnight described as "my nightmares come to life" and tremors. He denies current visual/auditory/tactile hallucination. Also denies headache, vision changes, chest pain, SOB, nausea, abdominal pain, and vomiting. He has been in communication with [facility] and plans to enter the [facility] for the next 9 months upon discharge. - Objective MAR Reviewed: Yes Vital Signs & Weight: Vital Signs (12 hours) Temp Pulse Ox 01/03/20 03:40 97.1 F L 01/02/20 23:36 97.8 F 01/02/20 20:00 100 01/02/20 19:21 98.1 F Weight Weight 63.5 kg Most Recent Monitor Data Heart Rate from ECG 64 NIBP 149/107 NIBP BP-Mean 121 Respiration from ECG 10 SpO2 100 I&O: 01/01/20 01/02/20 01/03/20 06:59 06:59 06:59 Intake Total 2258 1977 1848 Output Total 6719 3600 Balance 2258 62 -1752 Result Diagrams: 01/03/20 03:04 01/03/20 03:04 Phys Exam - Physical Examination Constitutional: NAD HEENT: moist MMs, sclera anicteric Neck: supple, full ROM Respiratory: no wheezing, clear to auscultation bilateral Cardiovascular: RRR, no significant murmur Gastrointestinal: soft, non-tender, positive bowel sounds Musculoskeletal: no edema, pulses present Neurological: non-focal, normal sensation, moves all 4 limbs No tremor present Psychiatric: normal affect, A&O x 3 Skin: no rash, normal turgor Dx/Plan - Plan Plan: Acute alcohol withdrawal Hx withdrawal seizures Hx delirium tremens Hx alcohol abuse Reported drinking 10 40oz beers on 12/29 pm, alcohol level 149 in ED. + tremors overnight -ASE protocol in place -Required Valium 5mg x this am due to ASE score 10, will continue Librium 50mg Q6H scheduled today and taper as tolerated. Will dc on Librium taper -Continue PO folate, thiamine daily -Continue maintanence fluids LR @ 100 -Continue Protonix 40mg PO once daily -Zofran PRN -Advance diet as tolerated -Extensive conversation about abstinence and ways to cope with life stressors. CM consult to investigate rehab options. Met with rod finisher for prayer. -Patient plans to enter [facility] after discharge Alcoholic hepatitis In ED: WBC 14 with bands, bili 1.5, AST 357, ALT 197, Alk phos 121. MELD score: 8. Hepatitis panel negative. -LFTs improving, continue to trend -Trend INR daily -Daily CMP LA Grade B erosive esophagitis Patient reports hematemesis 12/[address] Todd, GI, consulted. EGD on 12/31 showed LA grade B reflux-mediated erosive esophagitis and mucosal erythema -H/H stable, continue to trend -F/u biopsy results Steatohepatitis -RUQ US showed diffuse fatty liver Hx marijuana use -Drug screen + for marijuana Schizophrenia -No home medications PCP: None, bounce back Code: FULL Dispo: [facility] pending further medical management Addendum - Attending - Attending Attestation Date/Time: 01/03/20 [id number] I personally evaluated the patient and discussed the management with Dr. Kimball. I agree with the History, Examination, Assessment and Plan documented above with any addition or exceptions noted below.
[2020-01-03] MEDS: chlordiazePOXIDE HCl 25 MG CAP PO SCH ×4 (06:37→23:44)
--- NOTE | 2020-01-03 07:58 | PRG ---
DATE OF SERVICE: 01/02/2020 SUBJECTIVE: Mr. Kwon is resting comfortably in bed. He has had no more vomiting. He is tolerating liquids. OBJECTIVE: VITAL SIGNS: Temperature is 97. He has been afebrile for the past 24 hours. Blood pressure 130/91, pulse is 81. GENERAL: He is thin. He is resting comfortably in bed. He is in no distress. ABDOMEN: Soft and nontender. EXTREMITIES: There is no edema in the legs. LABORATORY DATA: White count is down from 14 to 8.6, hemoglobin 15, platelet count 125. INR 1. Sodium 134, potassium 3.8, BUN and creatinine are 4 and 0.6. AST and ALT are 214 and 156, down from 357 and 196; alkaline phosphatase is 82; bilirubin is down from 1.5 to 1.1; albumin is 3.9. Lipase is 39. negative. Alcohol was 149 on admission on the . ASSESSMENT: 1. Alcoholic hepatitis. 2. Alcohol withdrawal, which is improving. He is not out of the youngblood yet as he came with a positive alcohol level on the . 3. Severe reflux esophagitis, likely from retching and vomiting. RECOMMENDATIONS: 1. Continue IV PPI. 2. Banana bag daily. Oral multivitamin, thiamine, and folate daily. 3. PPI IV daily, q.12 for now. 4. Await gastric biopsies. 5. Hematemesis likely related to emetogenic injury. We will follow along with you. Job ID: [id number]
[2020-01-03] MEDS: Magnesium Oxide 400 MG TAB PO SCH (08:40)
[2020-01-03] MEDS: Thiamine 100 MG TAB PO SCH (08:40)
[2020-01-03] MEDS: Folic Acid 1 MG TAB PO SCH (08:40)
[2020-01-03] MEDS: Multivitamin W/ Minerals 1 TAB PO SCH (08:40)
[2020-01-03] MEDS: Lactated Ringer's 1,000 ML IV SCH (08:42)
--- NOTE | 2020-01-03 11:16 | PRG ---
DATE OF SERVICE: 01/03/2020 SUBJECTIVE: Keyon is feeling quite a bit better. He was feeling shaky and actually had some hallucinations last night, but this has improved with Valium. He is not having any abdominal pain. There is mild nausea, but no vomiting. He tolerated his breakfast just fine. He has no other complaints. He is planning to go to a rehab facility on hospital discharge, in order to quit drinking. OBJECTIVE: VITAL SIGNS: Temperature 97.6, blood pressure 133/90, pulse is 77, 100% oxygen saturation on room air. GENERAL: Lying in bed comfortably, in no acute distress. HEART: Regular rate and rhythm. LUNGS: Clear to auscultation bilaterally. ABDOMEN: Nondistended. Bowel sounds present. Soft, nontender to palpation. EXTREMITIES: No peripheral edema. LABORATORY STUDIES: Hemoglobin stable at 15.1, WBC 5.6, platelets 124. INR is normal at 0.9. Sodium 138; potassium 3.6; BUN only 4; creatinine 0.72; total bilirubin 0.7, down from 1.5 on admission; alkaline phosphatase is 90, down from 121 on admission; AST is 148, down from 357 on admission; ALT is 150, down from 197 on admission; lipase 39; albumin 4.0. Viral hepatitis serologies are negative. ASSESSMENT AND PLAN: 1. Acute alcoholic hepatitis, mild, clinically improving. The lab trend is all favorable. INR is normal. I think that if he is able to completely quit drinking from this point forward, he should do well. But I had a long conversation with him that if he goes back to drinking, any future presentations of alcoholic hepatitis will likely be more severe and may in fact be fatal. I strongly encouraged him to follow through with his plan to go to a substance abuse rehab. 2. Alcohol withdrawal, treatment per primary service. 3. Reflux esophagitis, likely from all the retching and vomiting. I would continue on twice daily PPI, transition to oral dosing on hospital discharge. 4. GI will sign off. We will plan to see him back in clinic in about 3 weeks with either myself or my physician life enrichment assistant, we will recheck LFTs at that time. Job ID: [id number]
[2020-01-03 15:48] VITALS: BP 129/87
[2020-01-04 04:07] LABS: #Basophils 0.1 thou/uL (0.0-0.2); #Eosinphils 0.2 thou/uL (0.0-0.7); #Lymphocytes 2.5 thou/uL (1.20-3.40); #Monocytes 0.9 thou/uL (0.11-0.59); #Neutrophils 5.5 thou/uL (1.40-6.50); %Basophils 0.8 % (0.0-1.0); %Eosinophils 1.8 % (0.0-10.0); %Lymphocytes 27.5 % (21.0-51.0); %Monocytes 9.5 % (0.0-10.0); %Neutrophils 60.4 % (42.0-75.0); Hemoglobin 17.1 g/dL (14.0-18.0); Mean Corpuscular HGB CONC 34.3 g/dL (32.0-36.0); Mean Corpuscular Hemoglobin 31.8 pg (27.0-31.0); Mean Corpuscular Volume 92.7 fL (78.0-98.0); Mean Platelet Volume 7.9 fL (7.4-10.4); Platelet Count 149 thou/uL (130-400); RBC Distribution Width 12.7 % (11.5-14.5); Red Blood Cell (RBC) Count 5.36 mill/uL (4.70-6.10); White Blood Cell (WBC) Count 9.1 thou/uL (4.8-10.8)
[2020-01-04 04:11] LABS: INR-International Normal Ratio 0.9; Prothrombin Time 11.7 sec (12.0-14.7)
[2020-01-04 04:46] LABS: ALT (SGPT) 210 U/L (8-55); AST (SGOT) 193 U/L (5-34); Albumin 4.8 g/dL (3.5-5.0); Alkaline Phosphatase 98 U/L (40-110); Anion Gap 16 mmol/L (10-20); BUN (Urea Nitrogen) 8 mg/dL (8.9-20.6); Bilirubin, Total 0.7 mg/dL (0.2-1.2); Calc. Creatinine Clearance 122 mL/min (70-130); Calcium 10.5 mg/dL (7.8-10.44); Carbon Dioxide 27 mmol/L (22-29); Chloride 101 mmol/L (98-107); Estimated GFR-MDRD Greater than 90; Globulin 3.2 g/dL (2.4-3.5); Glucose 99 mg/dL (70-105); Potassium 4.5 mmol/L (3.5-5.1); Sodium 139 mmol/L (136-145)
[2020-01-04] MEDS: chlordiazePOXIDE HCl 25 MG CAP PO SCH ×2 (05:25→11:35)
--- NOTE | 2020-01-04 05:47 | PDOC.FM ---
- Subjective Subjective: Patient says he is feeling well and ready to go home. He denies tremors, nightmares and hallucinations overnight. He also denies headache, vision changes, chest pain, SOB, nausea and abdominal pain. - Objective MAR Reviewed: Yes Vital Signs & Weight: Vital Signs (12 hours) Temp Pulse Ox 01/04/20 03:55 97.3 F L 01/04/20 01:28 98 01/03/20 23:48 97.0 F L 01/03/20 19:45 99 01/03/20 19:11 97.8 F Weight Weight 63.5 kg Most Recent Monitor Data Heart Rate from ECG 72 NIBP 122/100 NIBP BP-Mean 107 Respiration from ECG 22 SpO2 99 I&O: 01/02/20 01/03/20 01/04/20 06:59 06:59 06:59 Intake Total 1976 3050 0 Output Total 1916 4379 3350 Balance 62 1325 1290 Result Diagrams: 01/04/20 03:38 01/04/20 03:38 Phys Exam - Physical Examination Constitutional: NAD HEENT: moist MMs, sclera anicteric Neck: supple, full ROM Respiratory: no wheezing, clear to auscultation bilateral Cardiovascular: RRR, no significant murmur Gastrointestinal: soft, non-tender, positive bowel sounds Musculoskeletal: no edema, pulses present Neurological: non-focal, moves all 4 limbs Psychiatric: normal affect, A&O x 3 Skin: no rash, cap refill <2 seconds Dx/Plan - Plan Plan: Acute alcohol withdrawal Hx withdrawal seizures Hx delirium tremens Hx alcohol abuse Reported drinking 10 40oz beers on 12/29 pm, alcohol level 149 in ED. + tremors overnight -ASE protocol in place -Did not require Valium overnight. Plan to dc on Librium taper today -Continue PO folate, thiamine daily -Continue Protonix 40mg PO once daily -Zofran PRN -Extensive conversation about abstinence and ways to cope with life stressors. CM consult to investigate rehab options. Met with cement crusher operator for prayer. -Patient plans to enter [facility] program after discharge. He says he feels prepared to leave the hospital and will no longer drink alcohol. Alcoholic hepatitis In ED: WBC 14 with bands, bili 1.5, AST 357, ALT 197, Alk phos 121. MELD score: 8. Hepatitis panel negative. -LFTs improving, continue to trend -INR stable -Daily CMP LA Grade B erosive reflux esophagitis Patient reports hematemesis 12/[address] Todd, GI, consulted. EGD on 12/31 showed LA grade B reflux-mediated erosive esophagitis and mucosal erythema -H/H stable -Biopsy: mild chronic inactive gastritis, focal areas of erosive gastropathy, negative for H. pylori Steatohepatitis -RUQ US showed diffuse fatty liver Hx marijuana use -Drug screen + for marijuana Schizophrenia -No home medications PCP: None, bounce back Code: FULL Dispo: Stable for discharge to [facility] [place] outpatient. Will f/u with GI in 3 weeks and establish with PCP within 1-2 weeks. Addendum - Attending - Attending Attestation Date/Time: 01/04/20 [id number] I personally evaluated the patient and discussed the management with Dr. Kimball. I agree with the History, Examination, Assessment and Plan documented above with any addition or exceptions noted below.
[2020-01-04 07:18] VITALS: TEMP 97
[2020-01-04] MEDS: Folic Acid 1 MG TAB PO SCH (08:56)
[2020-01-04] MEDS: Multivitamin W/ Minerals 1 TAB PO SCH (08:56)
[2020-01-04] MEDS: Thiamine 100 MG TAB PO SCH (08:56)
[2020-01-04] MEDS: Magnesium Oxide 400 MG TAB PO SCH (08:56)
--- NOTE | 2020-01-06 12:47 | EKG ---
Test Reason : Blood Pressure : / mmHG Vent. Rate : 099 BPM Atrial Rate : 099 BPM P-R Int : 128 ms QRS Dur : 080 ms QT Int : 330 ms P-R-T Axes : 050 052 054 degrees QTc Int : 423 ms Normal sinus rhythm Normal ECG Confirmed by ADITI LUCAS MD ([id number] on 01/06/2020 12:46:45 PM Referred By: BOYD Confirmed By:ADITI LUCAS MD
--- NOTE | 2020-01-07 12:26 | PQF ---
CLINICAL DOCUMENTATION CLARIFICATION FORM: Dear : Frantz Desir MD Date / Time: 01/07/2020 Please exercise your independent, professional judgment in responding to the clarification form. Clinical indicators are provided on the bottom of this form for your review Please check appropriate box(es): [ x ] GI bleed due to erosive esophagitis [ ] GI bleed due to gastritis [ ] Other diagnosis (Please specify if any) [ ] Unable to determine Physician Signature: Date/Time: For continuity of documentation, please document condition throughout progress notes and discharge summary. Thank You. To be completed by CDI/Coding staff for physician review: Present Clinical Indicators - Signs / Symptoms / Labs Results and Location in Medical Record [x ] Reported GI Bleed- patient reports intermittent melena for multiple months, hematochezia this am. Family H&P on 12/30 [ x ] I doubt that he has esophageal varices and current presentation is not consistent with variceal blled, but more likely represents erosive esophagitis Consult on 12/30 [ x ] LA grade B reflux mediated erosive esophagitis OP note on 12/31 [ x ] Hematemesis likely related to emetogenic injury Progress notes on 01/02 [x ] Biopsy: Mild chronic inactive gastritis, focal area of erosive gastropathy Progress notes on 01/02 Present Risk Factors Results and Location in Medical Record [ x ] intermittent melena for multiple months Family H&P on 12/30 [ ] [ ] [ ] Present Treatments Results and Location in Medical Record [ x] EGD with biopsy OP note on 12/31 [ x ] Protonix 40 mg Medication on 12/30, 01/01 to 01/03 [X ] Protonix 40 mg IV Medication on 12/31, 01/01 [ ] CDS/Rn Imcu Signature: AAS Phone #: Date/Time: 01/07/2020 This is a permanent part of the Medical Record MTDD
--- NOTE | 2020-01-15 16:36 | EKG ---
Test Reason : Blood Pressure : / mmHG Vent. Rate : 114 BPM Atrial Rate : 114 BPM P-R Int : 128 ms QRS Dur : 084 ms QT Int : 338 ms P-R-T Axes : 069 075 058 degrees QTc Int : 465 ms Sinus tachycardia Otherwise normal ECG Confirmed by MADELYN MARES, MARTIN Gonzáles ([id number]), industrial editor LUX COLE ([id number]) on 01/15/2020 4:36:01 PM Referred By: Confirmed By:MARTIN JOSHI MD
== END 2020-01-04 12:18 | disposition home or self-care (01) | DRG 432 ==
LOC: ERS 10:22 → IMCU/EMU 12:54
PROVIDERS: ADMIT Family Medicine; ATTEND Family Medicine
PROC: HZ2ZZZZ Detoxification Services for Substance Abuse Treatment (ICD-10-PCS; 2019-12-31)
PROC: 0DB68ZX Excision of Stomach, Via Natural or Artificial Opening Endoscopic, Diagnostic (ICD-10-PCS; principal; 2020-01-01)
DX: K70.10 Alcoholic hepatitis without ascites (principal); K22.11 Ulcer of esophagus with bleeding; F10.239 Alcohol dependence with withdrawal, unspecified; E87.2 Acidosis; K92.2 Gastrointestinal hemorrhage, unspecified; K21.0 Gastro-esophageal reflux disease with esophagitis; F20.9 Schizophrenia, unspecified; F17.210 Nicotine dependence, cigarettes, uncomplicated; R74.0 Nonspecific elevation of levels of transaminase and lactic acid dehydrogenase [LDH]; E80.6 Other disorders of bilirubin metabolism; F41.9 Anxiety disorder, unspecified; Z20.828 Contact with and (suspected) exposure to other viral communicable diseases
CPT/HCPCS: 36415; 36416; 71045; 76705; 80053; 80074; 80306; 80307; 81003; 81015; 82550; 82805; 83690; 83735; 84484; 85025; 85610; 87635; 88305; 88312; 93005; 93010; 96361; 96365; 96375; C9113; J2060; J2405; J2704; J3411; J7042; U0003

== ENCOUNTER 2020-01-21 09:47 | Emergency (ER) | payer SELFPAY ==
[2020-01-21 10:48] LABS: #Basophils 0.1 thou/uL (0.0-0.2); #Lymphocytes 0.8 thou/uL (1.20-3.40); #Monocytes 0.2 thou/uL (0.11-0.59); #Neutrophils 7.7 thou/uL (1.40-6.50); %Basophils 0.6 % (0.0-1.0); %Eosinophils 0.3 % (0.0-10.0); %Lymphocytes 9.2 % (21.0-51.0); %Monocytes 2.8 % (0.0-10.0); %Neutrophils 87.1 % (42.0-75.0); Hemoglobin 15.7 g/dL (14.0-18.0); Mean Corpuscular Hemoglobin 31.8 pg (27.0-31.0); Mean Corpuscular Volume 93.8 fL (78.0-98.0); Mean Platelet Volume 6.5 fL (7.4-10.4); Platelet Count 209 thou/uL (130-400); RBC Distribution Width 13.6 % (11.5-14.5); Red Blood Cell (RBC) Count 4.92 mill/uL (4.70-6.10); White Blood Cell (WBC) Count 8.9 thou/uL (4.8-10.8)
[2020-01-21] MEDS ORDERED: chlordiazePOXIDE HCl 25 MG CAP PO SCH (11:00)
[2020-01-21 11:03] LABS: ALT (SGPT) 170 U/L (8-55); AST (SGOT) 212 U/L (5-34); Alcohol 60 mg/dL (Less than 10); Alkaline Phosphatase 97 U/L (40-110); Anion Gap 26 mmol/L (10-20); BUN (Urea Nitrogen) 8 mg/dL (8.9-20.6); Bilirubin, Total 0.8 mg/dL (0.2-1.2); Calc. Creatinine Clearance 0 mL/min (70-130); Calcium 9.2 mg/dL (7.8-10.44); Carbon Dioxide 16 mmol/L (22-29); Chloride 100 mmol/L (98-107); Estimated GFR-MDRD Greater than 90; Glucose 77 mg/dL (70-105); Potassium 4.1 mmol/L (3.5-5.1); Sodium 138 mmol/L (136-145)
[2020-01-21] MEDS ORDERED: chlordiazePOXIDE HCl 25 MG CAP ONE (11:15)
--- NOTE | 2020-01-26 13:25 | EKG ---
Test Reason : Blood Pressure : / mmHG Vent. Rate : 105 BPM Atrial Rate : 105 BPM P-R Int : 130 ms QRS Dur : 080 ms QT Int : 330 ms P-R-T Axes : 067 067 054 degrees QTc Int : 436 ms Sinus tachycardia Otherwise normal ECG Confirmed by MARCO LUEVANO DO ([id number]), communications editor COREY BRANTLEY ([id number]) on 01/26/2020 1:25:16 PM Referred By: Confirmed By:MARCO LUEVANO DO
== END 2020-01-21 12:37 | disposition home or self-care (01) ==
LOC: ERS 09:47
DX: F10.129 Alcohol abuse with intoxication, unspecified (principal); E86.0 Dehydration; F19.10 Other psychoactive substance abuse, uncomplicated; F41.9 Anxiety disorder, unspecified; F17.210 Nicotine dependence, cigarettes, uncomplicated
CPT/HCPCS: 80053; 80307; 85025; 93005

== ENCOUNTER 2020-02-01 12:09 | Emergency (ER) | payer SELFPAY ==
[2020-02-01] MEDS ORDERED: Lidocaine Viscous Sol 2% 15 ml UD Cup ONE (12:23)
[2020-02-01] MEDS ORDERED: Mag-Al 1200 mg/1200 mg/30 ML UDCUP ONE (12:23)
[2020-02-01] MEDS ORDERED: Fluorescein Opthalmic Strip ONE ×2 (13:27→13:28)
[2020-02-01] MEDS ORDERED: Proparacaine 0.5% Opth 15 ML BOT ONE (13:27)
[2020-02-01] MEDS ORDERED: Famotidine 20 MG TAB ONE (13:59)
== END 2020-02-01 14:08 | disposition home or self-care (01) ==
LOC: ERS 12:09
DX: L23.7 Allergic contact dermatitis due to plants, except food (principal); F17.210 Nicotine dependence, cigarettes, uncomplicated
CPT/HCPCS: 99283

== ENCOUNTER 2020-02-13 17:02 | Emergency (ER) | payer SELFPAY ==
--- NOTE | 2020-02-16 16:29 | EKG ---
Test Reason : Blood Pressure : / mmHG Vent. Rate : 101 BPM Atrial Rate : 101 BPM P-R Int : 124 ms QRS Dur : 080 ms QT Int : 334 ms P-R-T Axes : 063 061 056 degrees QTc Int : 433 ms Sinus tachycardia Possible Left atrial enlargement Borderline ECG Confirmed by ABHI BRANTLEY DO ([id number]), production editor COREY BRANTLEY ([id number]) on 02/16/2020 4:29:20 PM Referred By: Confirmed By:ABHI BRANTLEY DO
== END 2020-02-13 17:47 | disposition home or self-care (01) ==
LOC: ERS 17:02
DX: F10.10 Alcohol abuse, uncomplicated (principal); F15.10 Other stimulant abuse, uncomplicated; F32.9 Major depressive disorder, single episode, unspecified; F41.9 Anxiety disorder, unspecified; F17.210 Nicotine dependence, cigarettes, uncomplicated; Z79.899 Other long term (current) drug therapy
CPT/HCPCS: 93005; 94760

== ENCOUNTER 2020-02-23 13:43 | Inpatient (IN) | payer SELFPAY ==
[2020-02-23 14:38] LABS: #Basophils 0.1 thou/uL (0.0-0.2); #Eosinphils 0.2 thou/uL (0.0-0.7); #Lymphocytes 1.8 thou/uL (1.20-3.40); #Monocytes 0.8 thou/uL (0.11-0.59); #Neutrophils 3.3 thou/uL (1.40-6.50); %Lymphocytes 29.7 % (21.0-51.0); %Monocytes 12.4 % (0.0-10.0); %Neutrophils 52.9 % (42.0-75.0); Hemoglobin 14.5 g/dL (14.0-18.0); Mean Corpuscular HGB CONC 34.1 g/dL (32.0-36.0); Mean Corpuscular Hemoglobin 31.8 pg (27.0-31.0); Mean Corpuscular Volume 93.1 fL (78.0-98.0); Mean Platelet Volume 5.8 fL (7.4-10.4); Platelet Count 289 thou/uL (130-400); RBC Distribution Width 12.9 % (11.5-14.5); Red Blood Cell (RBC) Count 4.57 mill/uL (4.70-6.10); White Blood Cell (WBC) Count 6.2 thou/uL (4.8-10.8)
[2020-02-23] MEDS ORDERED: Lorazepam 2 MG/ML VIAL ONE (14:51)
[2020-02-23] MEDS ORDERED: chlordiazePOXIDE HCl 25 MG CAP ONE (14:51)
[2020-02-23 15:10] LABS: ALT (SGPT) 52 U/L (8-55); AST (SGOT) 49 U/L (5-34); Acetaminophen Less than 6.0 mcg/mL (10.0-30.0); Albumin 4.5 g/dL (3.5-5.0); Alcohol 322 mg/dL (Less than 10); Alcohol 337 mg/dL (Less than 10); Alkaline Phosphatase 77 U/L (40-110); Anion Gap 19 mmol/L (10-20); Anion Gap 21 mmol/L (10-20); BUN (Urea Nitrogen) 5 mg/dL (8.9-20.6); BUN (Urea Nitrogen) 6 mg/dL (8.9-20.6); Bilirubin, Total 0.4 mg/dL (0.2-1.2); CK (CPK) 102 U/L (30-200); Calc. Creatinine Clearance 0 mL/min (70-130); Calcium 8.8 mg/dL (7.8-10.44); Carbon Dioxide 21 mmol/L (22-29); Carbon Dioxide 22 mmol/L (22-29); Chloride 100 mmol/L (98-107); Chloride 99 mmol/L (98-107); Glucose 78 mg/dL (70-105); Glucose 79 mg/dL (70-105); Potassium 3.6 mmol/L (3.5-5.1); Potassium 3.7 mmol/L (3.5-5.1); Protein, Total 7.5 g/dL (6.0-8.3); Salicylate Less than 8.0 mg/dL (15.0-30.0); Sodium 137 mmol/L (136-145)
[2020-02-23 15:21] LABS: Bilirubin Negative (Negative); Blood, Urine Negative (Negative); Clarity Clear (Clear); Glucose, Urine (Dipstick) Normal (Negative); Ketone, Urine Negative (Negative); Leukocyte Negative Leu/uL (Negative); Nitrite Negative (Negative); Protein, Urine (Dipstick) Negative (Neg-Trace); Specific Gravity, Urine 1.005 (1.002-1.036); Urobilinogen Normal mg/dL (Less than 2); pH, Urine 5.5 (5.0-9.0)
[2020-02-23] MEDS ORDERED: Multivitamins, Adult 10 ML, Thiamine HCl 100 MG, Folic Acid 1 MG in Dextrose 5 %-0.45 %... IV SCH (15:30)
[2020-02-23 15:38] LABS: Amphetamine Not Detected (NotDetected); Barbiturates Screen Not Detected (NotDetected); Benzodiazepine Screen Not Detected (NotDetected); Cocaine Metabolite Screen Not Detected (NotDetected); Medtox Control Line Valid? VALID (VALID); Medtox Reader # READER 4; Methadone Not Detected (NotDetected); Methamphetamine Not Detected (NotDetected); Opiate Screen Not Detected (NotDetected); Oxycodone Screen Not Detected (NotDetected); Phencyclidine (PCP) Not Detected (NotDetected); THC/Cannabinoid Screen Not Detected (NotDetected); Tricyclic Screen Not Detected (NotDetected)
[2020-02-23] MEDS ORDERED: Acetaminophen 325 MG TAB PO PRN (16:21)
--- NOTE | 2020-02-23 16:26 | PDOC.HHP ---
Hospitalist HPI - History of Present Illness Tremor History of Present Illness: Patient is a 29-year-old male with a history of longstanding alcoholism. Patient was admitted in November and again in late December with alcohol withdrawal related issues. Patient reports that he did go to the [facility] at the time of his last discharge. He has not participated in the program however. He says that he has cut back on his drinking somewhat. He drinks 240 ounce beers last night and half of a 32 ounce beer this morning. He presented to the ER today indicating that he has been having some tremor for the last several days. He says he does not have mental peace and that he has anxiety. ED Course: Patient was given Ativan and Librium in the emergency department. Hospitalist ROS - Review of Systems Constitutional: denies: fever, chills Cardiovascular: denies: chest pain, palpitations Gastrointestinal: denies: nausea, vomiting All other systems reviewed; all pertinent +/- noted in HPI/Subj - Medication Medications: None Hospitalist History - Past Medical History Other Medical History: Alcoholism, schizophrenia, steatohepatitis - Past Surgical History Past Surgical History: reports: no pertinent history - Family History Family History: reports: diabetes mellitus - Social History Smoking Status: Current every day smoker (1 to 2 cigarettes/day) Alcohol: reports: Heavy (Equivalent of about 18 beers per day.) Drugs: reports: marijuana Living Situation: Roommate Activity level: independent ambulation - Exam General Appearance: NAD, awake alert General - other findings: Thin, dirty fingernails Heart: RRR, no murmur, no gallops, no rubs, normal peripheral pulses Respiratory: CTAB, no wheezes, no rales, no ronchi, normal chest expansion, no tachypnea, normal percussion Gastrointestinal: soft, non-tender, non-distended, normal bowel sounds, no palpable masses, no hepatomegaly, no splenomegaly, no bruit Extremities: no cyanosis, no clubbing, no edema Skin: normal turgor, no lesions, no rashes Neurological: cranial nerve grossly intact, normal sensation to touch, no weakness, no focal deficits, no new deficit Neurological - other findings: Modest tremor (received benzodiazepines in the ED) Musculoskeletal: generalized weakness Psychiatric: normal affect, normal behavior Hospitalist Results - Labs Result Diagrams: 02/23/20 14:23 02/23/20 14:23 Lab results: WBC 6.2 thou/uL (4.8-10.8) 02/23/20 14:23 Hgb 14.5 g/dL (14.0-18.0) 02/23/20 14:23 Hct 42.5 % (42.0-52.0) 02/23/20 14:23 MCV 93.1 fL (78.0-98.0) 02/23/20 14:23 Plt Count 289 thou/uL (130-400) 02/23/20 14:23 Neutrophils % 52.9 % (42.0-75.0) 02/23/20 14:23 Sodium 137 mmol/L (136-145) 02/23/20 14:23 Sodium 137 mmol/L (136-145) 02/23/20 14:23 Potassium 3.6 mmol/L (3.5-5.1) 02/23/20 14:23 Potassium 3.7 mmol/L (3.5-5.1) 02/23/20 14:23 Chloride 99 mmol/L (98-107) 02/23/20 14:23 Chloride 100 mmol/L (98-107) 02/23/20 14:23 Carbon Dioxide 21 mmol/L (22-29) L 02/23/20 14:23 Carbon Dioxide 22 mmol/L (22-29) 02/23/20 14:23 BUN 5 mg/dL (8.9-20.6) L 02/23/20 14:23 BUN 6 mg/dL (8.9-20.6) L 02/23/20 14:23 Creatinine 0.68 mg/dL (0.7-1.3) L 02/23/20 14:23 Creatinine 0.71 mg/dL (0.7-1.3) 02/23/20 14:23 Glucose 78 mg/dL (70-105) 02/23/20 14:23 Glucose 79 mg/dL (70-105) 02/23/20 14:23 Calcium 8.8 mg/dL (7.8-10.44) 02/23/20 14:23 Calcium 8.8 mg/dL (7.8-10.44) 02/23/20 14:23 Total Bilirubin 0.4 mg/dL (0.2-1.2) 02/23/20 14:23 AST 49 U/L (5-34) H 02/23/20 14:23 ALT 52 U/L (8-55) 02/23/20 14:23 Alkaline Phosphatase 77 U/L (40-110) 02/23/20 14:23 Creatine Kinase 102 U/L (30-200) 02/23/20 14:23 Serum Total Protein 7.5 g/dL (6.0-8.3) 02/23/20 14: Albumin 4.5 g/dL (3.5-5.0) 02/23/20 14:23 Urine Ketones Negative mg/dL (Negative) 02/23/20 14:26 Urine Blood Negative (Negative) 02/23/20 14: Urine Nitrite Negative (Negative) 02/23/20 14:26 Ur Leukocyte Esterase Negative Anjelica/uL (Negative) 02/23/20 14:26 Hospitalist H&P A/P - Problem (1) Alcohol withdrawal Code(s): F10.239 - ALCOHOL DEPENDENCE WITH WITHDRAWAL, UNSPECIFIED Status: Ac marshall Qualifiers: Complication of substance-induced condition: uncomplicated Qualified Code(s): F10.230 - Alcohol dependence with withdrawal, uncomplicated (2) Schizophrenia Code(s): F20.9 - SCHIZOPHRENIA, UNSPECIFIED Status: Acute - Plan Plan: Alcohol withdrawal: Patient has a longstanding history of fairly severe alcoholism. He has presented to the hospital 3 times in just over 3 months with withdrawal related symptoms. Patient tells me that he is serious about trying to quit. He has a place in [place] that he likes and would like to go to alcohol rehabilitation there and believes he will be able to do so in April. Notably his alcohol level was well above 300 on presentation today. He has received benzodiazepines in the emergency department therefore may alter his assessment. Patient will be placed in observation. Continue with B vitamins and the ASE protocol. A long conversation with the patient regarding the high risk of repeated withdrawals without a solid endpoint of cessation. He assures me that that is his desired endpoint. Schizophrenia: Appears to be stable.
[2020-02-23] MEDS: Famotidine 20 MG TAB PO SCH (21:40)
[2020-02-23 21:44] VITALS: BMI 19.0
[2020-02-24] MEDS ORDERED: Diazepam 5 MG TAB PO PRN (00:16)
[2020-02-24] MEDS ORDERED: Diazepam 5 MG TAB PO SCH (00:30)
[2020-02-24] MEDS: Thiamine 100 MG TAB PO SCH (08:47)
[2020-02-24] MEDS: Famotidine 20 MG TAB PO SCH ×2 (08:47→20:05)
[2020-02-24] MEDS: Multivitamin W/ Minerals 1 TAB PO SCH (08:48)
[2020-02-24] MEDS: Folic Acid 1 MG TAB PO SCH (08:48)
[2020-02-24 10:28] LABS: SARS-CoV-2 MS2 Positive; SARS-CoV-2 N Gene Negative; SARS-CoV-2 S Gene Negative; SARS-CoV-2 by NAA Not Detected (NotDetected); SARS-CoV-2 orf1ab Negative
--- NOTE | 2020-02-24 17:51 | PDOC.HOSPP ---
- Subjective Encounter Date: 02/24/20 Encounter Time: 11:15 Subjective: pt up in bed no complains - Objective Vital Signs & Weight: Vital Signs (12 hours) Temp Pulse Resp BP BP BP Pulse Ox 02/24/20 15:36 98.6 F 88 14 134/85 98 02/24/20 12:00 98.8 F 91 16 121/75 98 02/24/20 07:55 97.8 F 89 16 143/79 H 143/79 H 99 Weight Weight 128 lb 9 oz I&O: 02/23/20 02/24/20 02/25/20 06:59 06:59 06:59 Intake Total 1000 Output Total 900 Balance 100 Result Diagrams: 02/23/20 14:23 02/23/20 14:23 Hospitalist ROS - Review of Systems Cardiovascular: denies: chest pain, palpitations, orthopnea, paroxysmal noc. dyspnea, edema, light headedness, other Gastrointestinal: denies: nausea, vomiting, abdominal pain, diarrhea, constipation, melena, hematochezia, other Genitourinary: denies: dysuria, frequency, incontinence, hematuria, retention, other - Medication Medications: Active Medications Generic Name Dose Route Start Last Admin Trade Name Freq PRN Reason Stop Dose Admin Diazepam 10 mg 02/24/20 00:16 02/24/20 15:34 Diazepam 5 Mg Tab PO 02/25/20 04:00 10 mg Q4H PRN Administration FOR ASE 10 OR GREATER Famotidine 20 mg 02/23/20 21:00 02/24/20 08:47 Famotidine 20 Mg Tab PO 20 mg BID HECTOR Administration Folic Acid 1 mg 02/24/20 09:00 02/24/20 08:48 Folic Acid 1 Mg Tab PO 1 mg DAILY HECTOR Administration Iron/Minerals/Multivitamins 1 tab 02/24/20 09:00 02/24/20 08:48 Multivitamin W/ Minerals 1 Tab PO 1 tab DAILY HECTOR Administration Thiamine HCl 100 mg 02/24/20 09:00 02/24/20 08:47 Thiamine 100 Mg Tab PO 100 mg DAILY HECTOR Administration - Exam Heart: negative: RRR, no murmur, no gallops, no rubs, normal peripheral pulses, irregular, diminshed peripheral pulses, murmur present, II/IV, III/IV Respiratory: negative: CTAB, no wheezes, no rales, no ronchi, normal chest e xpansion, no tachypnea, normal percussion, rales, rhonchi, tachypneic, wheezes Gastrointestinal: negative: soft, non-tender, non-distended, normal bowel sounds, no palpable masses, no hepatomegaly, no splenomegaly, no bruit, no guarding, no rigidity, tender to palpation, distended, diminished bowl sounds, voluntary guarding Extremities: 1+ LE edema Hosp A/P (1) Schizophrenia Code(s): F20.9 - SCHIZOPHRENIA, UNSPECIFIED Status: Acute (2) Alcohol withdrawal Code(s): F10.239 - ALCOHOL DEPENDENCE WITH WITHDRAWAL, UNSPECIFIED Status: Acute Qualifiers: Complication of substance-induced condition: uncomplicated Qualified Code(s): F10.230 - Alcohol dependence with withdrawal, uncomplicated (3) Moderate dehydration Code(s): E86.0 - DEHYDRATION Status: Resolved - Plan will continue current tx. cmp and mag will be ordered. pt wants to go inpatient to get help for alcohol withdrawal.
[2020-02-24] MEDS ORDERED: FLU VACC QS2020-21(6MOS UP)/PF 60 MCG/0.5 ML SYRINGE IM ONE (21:00)
[2020-02-25] MEDS ORDERED: Diazepam 5 MG TAB PO PRN (04:00)
[2020-02-25 04:59] LABS: ALT (SGPT) 44 U/L (8-55); AST (SGOT) 47 U/L (5-34); Albumin 4.2 g/dL (3.5-5.0); Alkaline Phosphatase 73 U/L (40-110); Anion Gap 14 mmol/L (10-20); BUN (Urea Nitrogen) 5 mg/dL (8.9-20.6); Bilirubin, Total 0.5 mg/dL (0.2-1.2); Calc. Creatinine Clearance 119 mL/min (70-130); Calcium 8.8 mg/dL (7.8-10.44); Carbon Dioxide 23 mmol/L (22-29); Chloride 100 mmol/L (98-107); Globulin 3.1 g/dL (2.4-3.5); Glucose 99 mg/dL (70-105); Potassium 3.7 mmol/L (3.5-5.1); Protein, Total 7.3 g/dL (6.0-8.3); Sodium 133 mmol/L (136-145)
[2020-02-25] MEDS ORDERED: Magnesium Oxide 400 MG TAB PO SCH (09:00)
[2020-02-25] MEDS: Famotidine 20 MG TAB PO SCH (10:33)
[2020-02-25] MEDS: Folic Acid 1 MG TAB PO SCH (10:34)
[2020-02-25] MEDS: Thiamine 100 MG TAB PO SCH (10:34)
[2020-02-25] MEDS: Multivitamin W/ Minerals 1 TAB PO SCH (10:35)
[2020-02-25 12:23] VITALS: BP 137/92; TEMP 98.1
--- NOTE | 2020-02-27 02:31 | DIS ---
DATE OF ADMISSION: 02/23/2020 DATE OF DISCHARGE: 02/25/2020 DISCHARGE DIAGNOSES: 1. Alcohol withdrawal. 2. Alcohol abuse. 3. Moderate dehydration. 4. Schizophrenia. HOSPITAL COURSE: The patient is a 29-year-old male who initially came into the hospital on 02/22 with complaints of tremors. The patient stated that he had a drink the day prior to coming to the hospital. He has been checked into alcohol withdrawal rehabilitation in [place]. He did initially well, however, he rebounded to drinking. The patient at this time states that he wants to go home and will check himself into the facility again and this facility is free according to the patient. I did provide him with some Valium just in case he did well overnight and he will be discharged. HOME MEDICATIONS: 1. Valium 5 mg b.i.d. 2. Folic acid 1 mg daily. 3. Thiamine 100 mg daily. PHYSICAL EXAMINATION: VITAL SIGNS: Temperature 97.9, heart rate 87, respiratory rate 18, 100% on room air, blood pressure 122/75. GENERAL: He is awake, alert, and oriented x3. Does not appear in distress. CV: S1, S2 present. No murmurs, rubs, or gallops. Again, he will be discharged home. He has been educated about alcohol use and to refrain from alcohol. He understands and he will be checking himself into a rehabilitation. Job ID: [id number]
--- NOTE | 2020-03-01 15:56 | EKG ---
Test Reason : WITHDRAWL Blood Pressure : / mmHG Vent. Rate : 080 BPM Atrial Rate : 080 BPM P-R Int : 112 ms QRS Dur : 096 ms QT Int : 364 ms P-R-T Axes : 001 088 006 degrees QTc Int : 419 ms Normal sinus rhythm Normal ECG Confirmed by AD ESCALONA ([id number]), society editor COREY BRANTLEY ([id number]) on 03/01/2020 3:55:44 PM Referred By: Confirmed By:AD ESCALONA
== END 2020-02-25 14:24 | disposition home or self-care (01) | DRG 897 ==
LOC: ERS 13:43 → 2NO 16:21
PROVIDERS: ADMIT Internal Medicine; ATTEND Internal Medicine
PROC: HZ2ZZZZ Detoxification Services for Substance Abuse Treatment (ICD-10-PCS; principal; 2020-02-23)
DX: F10.239 Alcohol dependence with withdrawal, unspecified (principal); F41.9 Anxiety disorder, unspecified; F32.9 Major depressive disorder, single episode, unspecified; F17.210 Nicotine dependence, cigarettes, uncomplicated; F20.9 Schizophrenia, unspecified; E86.0 Dehydration; Z20.828 Contact with and (suspected) exposure to other viral communicable diseases
CPT/HCPCS: 36415; 80053; 80306; 80307; 81003; 82550; 83735; 85025; 87635; 90471; 90662; 93005; 96365; 96366; 96375; G0008; J2060; J3411; J3475; J3490; J7042; U0003

== ENCOUNTER 2022-05-16 06:44 | Emergency (ER) | payer SELFPAY ==
[2022-05-16] MEDS ORDERED: LORazepam 2 MG/ML SYR.(CARPUJECT) ONE (07:04)
[2022-05-16] MEDS ORDERED: Pantoprazole 40 MG VIAL ONE (07:05)
[2022-05-16] MEDS ORDERED: Mag-Al 1200 mg/1200 mg/30 ML UDCUP ONE (07:05)
[2022-05-16] MEDS ORDERED: Lidocaine Viscous Sol 2% 15 ml UD Cup ONE (07:05)
[2022-05-16 07:19] LABS: #Basophils 0.1 thou/uL (0.0-0.2); #Eosinphils 0.2 thou/uL (0.0-0.7); #Lymphocytes 2.2 thou/uL (1.20-3.40); #Neutrophils 6.5 thou/uL (1.40-6.50); %Eosinophils 2.3 % (0.0-10.0); %Neutrophils 64.7 % (42.0-75.0); Hemoglobin 14.9 g/dL (14.0-18.0); Mean Corpuscular HGB CONC 35.1 g/dL (32.0-36.0); Mean Corpuscular Hemoglobin 32.6 pg (27.0-31.0); Mean Corpuscular Volume 92.8 fl (78.0-98.0); Mean Platelet Volume 6.5 fL (7.4-10.4); Platelet Count 307 10x3/uL (130-400); RBC Distribution Width 12.5 % (11.5-14.5); Red Blood Cell (RBC) Count 4.56 mill/uL (4.70-6.10)
[2022-05-16] MEDS ORDERED: Thiamine HCl 200 MG/2 ML VIAL SLOW IVP SCH (07:30)
[2022-05-16 07:32] LABS: Acetaminophen Less than 10.0 mcg/mL (10.0-30.0); Alcohol Less than 10 mg/dL (Less than 10); Salicylate Less than 8.0 mg/dL (15.0-30.0)
[2022-05-16 07:42] LABS: ALT (SGPT) 57 U/L (8-55); AST (SGOT) 36 U/L (5-34); Albumin 4.7 g/dL (3.5-5.0); Alkaline Phosphatase 61 U/L (40-110); Anion Gap 13 mmol/L (10-20); BUN (Urea Nitrogen) 4 mg/dL (8.9-20.6); Bilirubin, Total 0.5 mg/dL (0.2-1.2); Calc. Creatinine Clearance 0 mL/min (70-130); Calcium 9.2 mg/dL (7.8-10.44); Carbon Dioxide 21 mmol/L (22-29); Chloride 102 mmol/L (98-107); Estimated GFR 128; Globulin 2.9 g/dL (2.4-3.5); Glucose 91 mg/dL (70-105); Potassium 3.4 mmol/L (3.5-5.1); Protein, Total 7.6 g/dL (6.0-8.3); Sodium 133 mmol/L (136-145)
[2022-05-16 07:43] LABS: ALT (SGPT) 60 U/L (8-55); AST (SGOT) 41 U/L (5-34); Albumin 4.7 g/dL (3.5-5.0); Alkaline Phosphatase 60 U/L (40-110); Anion Gap 15 mmol/L (10-20); BUN (Urea Nitrogen) 5 mg/dL (8.9-20.6); Bilirubin, Total 0.5 mg/dL (0.2-1.2); Calc. Creatinine Clearance 0 mL/min (70-130); Carbon Dioxide 20 mmol/L (22-29); Chloride 102 mmol/L (98-107); Estimated GFR 128; Globulin 3.1 g/dL (2.4-3.5); Glucose 89 mg/dL (70-105); Potassium 3.7 mmol/L (3.5-5.1); Protein, Total 7.8 g/dL (6.0-8.3); Sodium 133 mmol/L (136-145)
[2022-05-16 08:20] LABS: Bilirubin Negative (Negative); Blood, Urine Negative (Negative); Clarity Clear (Clear); Glucose, Urine (Dipstick) Normal (Negative); Ketone, Urine Negative (Negative); Leukocyte Negative Leu/uL (Negative); Nitrite Negative (Negative); Protein, Urine (Dipstick) Negative (Neg-Trace); Specific Gravity, Urine 1.003 (1.002-1.036); Urobilinogen Normal mg/dL (Less than 2)
[2022-05-16 08:30] LABS: Amphetamine Not Detected (NotDetected); Barbiturates Screen Not Detected (NotDetected); Benzodiazepine Screen Detected (NotDetected); Cocaine Metabolite Screen Not Detected (NotDetected); Methadone Not Detected (NotDetected); Methamphetamine Not Detected (NotDetected); Opiate Screen Not Detected (NotDetected); Oxycodone Screen Not Detected (NotDetected); Phencyclidine (PCP) Not Detected (NotDetected); THC/Cannabinoid Screen Not Detected (NotDetected); Tricyclic Screen Not Detected (NotDetected)
[2022-05-16] MEDS ORDERED: Multivitamins, Adult 10 ML, Thiamine HCl 100 MG, Folic Acid 1 MG in Dextrose 5 %-0.45 %... IV SCH (09:00)
== END 2022-05-16 14:35 | disposition home or self-care (01) ==
LOC: ERS 06:44
DX: K29.20 Alcoholic gastritis without bleeding (principal); F17.210 Nicotine dependence, cigarettes, uncomplicated
CPT/HCPCS: 80053; 80306; 80307; 81003; 85025; 93005; 96365; 96366; 96375; C9113; J2060; J3411; J7042